=== PATIENT | female | born 1960 | race Caucasian/White ===

== ENCOUNTER 2016-09-13 12:28 | Inpatient (IN) | payer OTHER, MEDICARE ==
[2016-09-13] VITALS (9 sets, daily range): BP systolic 93–145; BP diastolic 46–88; PULSE 81–98; RESP 18–20; O2SAT 86–98
[~2016-09-13] VITALS: Ht 162.6 cm; Wt 100.5 kg
[~2016-09-13 12:28] MED LIST: ALBU2.5V4 INHALATION; ALBU8.5H2 INHALATION; ASCO500C6 PO; BACL10TA PO; BUME1TAB4 PO; CALC0.257 PO; CYA1000I IM; DIAZ10TA3 PO; GABA-500 PO; GABA-502 PO; LAMO200T PO; LEVO75TA4 PO; MAGN420T PO; METF500T4 PO; METO50TA3 PO; MIRT30TA6 PO; OMEP20CA11 PO; POTA10TA19 PO; PRAV20TA2 PO; PROP10DR4 BOTH_EYES; SPIR50TA2 PO; SYMINH INHALATION; TRAZ-118 PO
[2016-09-13 13:48] LABS: BASOPHILS % (AUTO) 0.2 % (0-3); MONOCYTES % (AUTO) 9.5 % (4-12); Mean Corpuscular Hemoglobin 28.8 pg (27.0-35.0); NEUTROPHILS % (AUTO) 73.3 % (40-74); Platelet Count 175 bil/L (150-400)
--- NOTE | 2016-09-13 13:52 | ED.REPORT ---
HPI-Dyspnea / Wheezing Date of Service Sep 13, 2016 ED Provider: Curly Ahumada MD Patient is a 56-year-old female with a hx of DM, multiple pneumonias, stage 3 renal failure, and asthma who presents to the ED reporting a cough and fever onset 3 days ago. Symptoms progressed to a productive cough 2 days ago with red and green phlegm. Pt c/o associated sore throat and congestion. Patient is having a hard time taking a breath. She has been using her nebulizer and inhaler which has not been effective in relieving symptoms. Pt recently started smoking again 2 months ago at 3 packs a day. Nursing Notes Stated Complaint: FEVER,COUGH Chief Complaint: FLU/Cold Symptoms Nursing Notes Reviewed: Yes Allergies: Coded Allergies: Penicillins (Verified Allergy, Severe, rash/seizures/vomiting, 09/13/16) ciprofloxacin HCl (Verified Allergy, Severe, Hive from head to toe, fever , and painful skin, 09/13/16) methylphenidate HCl (Verified Allergy, Severe, itching/rash/vomitting, ) phenytoin sodium extended (Verified Allergy, Severe, rash/hives, 09/13/16) sumatriptan (Verified Allergy, Severe, causing migraines, 09/13/16) cephalexin (Verified Allergy, Intermediate, Nausea,Vomiting, 09/13/16) Sulfa (Sulfonamide Antibiotics) (Verified Allergy, Unknown, rash,seizure, 09/13/16) metoclopramide HCl (Verified Adverse Reaction, Unknown, pt says it doesn' t work, 09/13/16) Scheduled Ascorbic Acid (Vitamin C) 500 Mg Capsule.er 500 MG PO DAILY Budesonide/Formoterol 160-4.5 mcg Inh (Symbicort 160-4.5 mcg Inh) 120 Puff Inhaler 2 PUFF INHALATION BID Bumetanide (Bumetanide) 1 Mg Tablet 1 MG PO BID Calcitriol (Rocaltrol) 0.25 Mcg Capsule 0.5 MCG PO DAILY Cyanocobalamin (Cyanocobalamin Injection) 1,000 Mcg/1 Ml Vial 1 ML IM monthly administer on the 1st of the month Gabapentin (Gabapentin) 300 Mg Capsule 300 MG PO HS Gabapentin (Gabapentin) 100 Mg Capsule 100 MG PO QAM Lamotrigine (Lamictal) 200 Mg Tablet 200 MG PO BID Levothyroxine (Levothyroxine) 75 Mcg Tablet 75 MCG PO DAILY Magnesium Oxide (Magnesium Oxide) 420 Mg Tablet 420 MG PO DAILY Metformin (Metformin) 500 Mg Tablet 1,500 MG PO DAILY Metoprolol Tartrate (Metoprolol Tartrate) 50 Mg Tablet 50 MG PO BID Mirtazapine (Mirtazapine) 30 Mg Tablet 30 MG PO HS Omeprazole (Omeprazole) 20 Mg Capsule.dr 20 MG PO DAILY Potassium Citrate ER (Potassium Citrate ER) 10 Meq Tablet 20 MEQ PO DAILY TAKE WITH FOOD Pravastatin (Pravastatin) 20 Mg Tablet 20 MG PO DAILY Spironolactone (Spironolactone) 50 Mg Tablet 50 MG PO DAILY Trazodone (Trazodone) 100 Mg Tablet 100 MG PO HS Scheduled PRN Albuterol HFA (Proair HFA) 8.5 Gm Hfa.aer.ad 2 PUFFS INHALATION Q4H PRN PRN For Shortness of Breath Albuterol Neb Soln (Albuterol Neb Soln) 2.5 Mg/3 Ml Vial.neb 3 ML INHALATION QID PRN PRN For Shortness of Breath Baclofen (Baclofen) 10 Mg Tablet 10 MG PO TID PRN PRN For Spasm Diazepam (Diazepam) 10 Mg Tablet 10 MG PO BID PRN PRN For Spasm Propylene Glycol (Systane Balance) 10 Ml Drops 1 DROP BOTH_EYES 5XD PRN PRN For Eye Irritation General Time Seen by MD: 12:57 Chief Complaint Cough Hx Obtained From: Patient Arrived By: Walk-in Sudden in Onset?: Yes Onset Occurred: 3 days ago Symptom Duration: Since onset Severity: Current: No pain currently Recent Healthcare: Recent doctor visit, Recent hospitalization Similar Sx Previous: Yes Past Medical History Past Medical History Notes: PCP: Dr. Lambert Past Medical History Anxiety Hypoparathyroid Migraines Fatty liver disease Nephrocalcinosis Diverticulosis DM Hiatal hernia Chronic pain PTSD DDD Hyperlipidemia IBS Gastroparesis Ovarian cysts - removed glaucoma cataracts Extra rib ADHD Obstructive Sleep Apnea Hypopituitarism Asthma Cancer COPD GERD Hypertension Chronic lymphedema Past Surgical History LEEP, hemorrhoid surgery Spinal stenosis Shoulder surgery Meniscus repair Lumpectomy Reports: Hysterectomy Reports: Back/neck surgery, Tubal ligation Family History Hyperlipidemia Reports: Diabetes mellitus Reports: Cancer Smoking History Former Smoker Social History Patient quit smoking 10 years ago but recently began again Alcohol Use: Denies alcohol use Drug Use: Denies drug use, THC Other Social History: Local resident Ambulatory Status Walker Review of Systems Constitutional: Reports: Fever Ears / Nose / Throat: Reports: Nasal congestion, Sore throat Respiratory: Reports: Prod cough, bloody, Prod cough, green, Wheezing Complete sys rev & neg: except as marked. Physical Exam Initial Vital Signs Vital Signs (First) Date Time Temp Pulse Resp B/P Pulse Ox O2 Delivery O2 Flow Rate FiO2 09/13/16 12:45 38.4 95 20 104/70 89 Room Air Initial VS: Reviewed Head / Eyes: Atraumatic, Normocephalic, PERRL ENT: Mucous membranes moist, Conjunctiva normal, No scleral icterus Abdomen / GI: Soft, Non-tender, No guarding, No rebound, No distention Back: No CVA tenderness Skin: Warm, Dry, No cyanosis Neurologic: Alert, Oriented, Nonfocal Psychiatric: Mood/affect normal, Behavior normal, Normal thought content General/Constitutional: Awake, Alert, Cooperative Neck: Atraumatic, Supple, No meningismus, Full range of motion, No swelling, Non-tender Respiratory / Chest: Breath sounds = bilat (course breath sounds bilaterally) Wheezing / Retractions: Positive: Wheezing moderate Cardiovascular: Heart rate NL, Regular rhythm, Heart sounds NL, No gallop, No murmurs, No rubs Lower Extremity / Pelvis / MS: No edema Interpretation & Diagnostics Lab Results Interpretation Result Diagram: 09/13/16 1330 09/13/16 1330 Test 09/13/16 13:30 White Blood Count 8.3th/mm3 (3.8-10.1) Red Blood Count 4.13mil/mm3 (3.90-5.20) Hemoglobin 11.9g/dL (12.0-15.6) Hematocrit 38.4% (35.0-46.0) Mean Corpuscular Volume 93.0fL (81-100) Mean Corpuscular Hemoglobin 28.8pg (27.0-35.0) Mean Corpuscular Hemoglobin Concent 31.0% (32.0-37.0) Red Cell Distribution Width 15.0% (12.3-15.4) Platelet Count 175bil/L (150-400) Neutrophils (%) (Auto) 73.3% (40-74) Lymphocytes (%) (Auto) 15.4% (14-46) Monocytes (%) (Auto) 9.5% (4-12) Eosinophils (%) (Auto) 1.0% (0-5) Basophils (%) (Auto) 0.2% (0-3) Sodium Level 138mEq/L (134-144) Potassium Level 3.7mEq/L (3.5-5.2) Chloride Level 98mEq/L (97-108) Carbon Dioxide Level 25mmol/L (18-29) Blood Urea Nitrogen 11mg/dL (6-24) Creatinine 1.12mg/dL (0.57-1.00) Estimat Glomerular Filtration Rate 72mL/min (>59) Glucose Level 170mg/dL (60-99) Lactic Acid Level 1.6mmol/L (0.4-2.0) Calcium Level 8.4mg/dL (8.5-10.1) Magnesium Level 1.8mg/dL (1.6-2.6) Total Bilirubin 0.2mg/dL (0.0-1.2) Aspartate Amino Transf (AST/SGOT) 25U/L (0-50) Alanine Aminotransferase (ALT/SGPT) 13U/L (0-32) Alkaline Phosphatase 80U/L (25-150) Troponin T < 0.010ug/L (0.0-0.011) Total Protein 6.6g/dL (6.4-8.4) Albumin 3.7g/dL (3.4-5.0) Lab Results Interpretation: negative for influenza A & B ECG Interpretation Time: 13:02 Interpreted by: ED physician Normal ECG Interpretation: Normal sinus rhythm (90), No acute ischemic changes Re-Eval/Medical Decision Med Decision/Clinical Course 56-year-old female history of smoking, diabetes, asthma, recurrent pneumonias is having shortness of breath. Patient was recently admitted several weeks ago for hypokalemia. Oxygen 89% on room air on arrival. Chest x-ray bibasilar pneumonia. Lactate normal. White blood cell count normal. Patient with numerous allergies. Discussed with hospitalist Dr. more decision made to start patient on vancomycin and cefepime (keflex allergy rash per patient). She has Levaquin allergy. Influenza negative. Patient requiring 2 L oxygen at time of transfer. Re-Evaluation/Progress : Time of Eval: 14:41 Patient Status: Condition unchanged Re-Evaluation/Progress Note: Pt rechecked. Informed pt of diagnosis of pneumonia and need for admission. Pt understands and agrees with plan for admission. All questions addressed. Counseled Regarding: Diagnosis, Lab results, Need for admission Discharge & Departure Impression: Primary Impression: Healthcare-associated pneumonia Disposition: ADMITTED TO HOSPITAL Discharge Condition All VS Reviewed: Yes Condition: Stable Referrals: Mauricio Varma MD (PCP) Scribe Attestation Portion of this note were transcribed by Kika Thakkar. I, Dr. Ahumada, personally performed the history, physical exam, and medical decision-making: I reviewed and confirmed the accuracy for the information in the transcribed note. Signed by: staci Boston, 09/13/16 1500 copies to: Mauricio Varma MD, Ben M MD Sep 13, 2016 13:52 KIKA THAKKAR Sep 13, 2016 14:05
--- NOTE | 2016-09-13 13:56 | DRSVH ---
PROCEDURE: X-RAY CHEST ONE VIEW, PORTABLE ([id number]) INDICATIONS: shortness of breath , fever , cough TECHNIQUE: One view of the chest was acquired. COMPARISON: [facility], CR, XR CHEST 1VW (PORTABLE), 08/15/2016, 16:16. FINDINGS: Surgical changes and devices: None. Lungs and pleura: No pleural effusions or pneumothorax. Bibasilar airspace opacities present, right greater than left. Mediastinum: Mediastinal contours appear normal. Heart size is normal. Bones and chest wall: No suspicious bony lesions. Overlying soft tissues appear unremarkable. IMPRESSION: Bibasilar atelectasis versus aspiration or pneumonia. Correlate clinically. Dictated by: Remy Doe RRA Interpreted: Eugenia Madrid MD on 09/13/2016 at 13:55 Transcribed by: QAMAR on 09/13/2016 at 13:56 Approved by: Eugenia Madrid MD, PhD on 09/13/2016 at 17:26
[2016-09-13] MEDS ORDERED: Albuterol-Ipratropium 3 mL Inhalation Solution NEB ONE (14:05)
[2016-09-13] MEDS ORDERED: MethylprednisoLONE Sodium Succinate 62.5 mg/mL 2 mL Inj IVPUSH ONE (14:05)
[2016-09-13 14:32] LABS: Magnesium 1.8 mg/dL (1.6-2.6); TROPONIN T < 0.010 ug/L (0.0-0.011)
[2016-09-13] MEDS ORDERED: Vancomycin Dose per Pharmacist XX ONE (15:00)
[2016-09-13] MEDS ORDERED: Cefepime Inj 2 GM in IV Premix 1 EACH IV ONE (15:20)
[2016-09-13] MEDS ORDERED: Albuterol-Ipratropium 3 mL Inhalation Solution NEB PRN (15:25)
[2016-09-13] MEDS ORDERED: 0.9% Sodium Chloride 1,000 ML IV SCH (15:55)
[2016-09-13] MEDS ORDERED: Vancomycin Inj 1,750 MG in Dextrose 5% 500 ML IV ONE (16:00)
[2016-09-13] MEDS: Albuterol-Ipratropium 3 mL Inhalation Solution NEB SCH ×2 (16:10→19:56)
[2016-09-13] MEDS: Cefepime Inj 2,000 MG in Dextrose 5% Minibag Plus 50 ML IV SCH ×2 (16:11→16:13)
--- NOTE | 2016-09-13 16:21 | PCM.HPMED ---
Subjective Date of Service Sep 13, 2016 Primary Provider: Admitting Physician: Primary Care Physician: Mauricio Varma MD Attending Physician: Chief Complaint: Generalized weakness productive cough History of Present Illness: 56-year-old female with active smoker, asthma COPD on Symbicort, albuterol prn, multiple other commodities presented with generalized weakness, worsening productive cough, vomiting started 3-4 days ago. Patient was in usual state of health until 4 days ago, thinks that she was exposed to one of the grandsons possibly who were coughing, started feeling unwell, coughing, decreased appetite, cough has gradually gotten worse starting to become productive. Patient has been using albuterol frequently to the point that patient used all months every hours all day yesterday, however symptoms were worse, also had one episode of vomiting after she took [id number] cough syrup. Also noted to have severe difficulty breathing even with frequent , decided to come to the hospital. Patient waited until today because her hospital and did not want her to be in the hospital because all multiple hospitalizations in the past. During this course, patient was only able to use inhalers but not able to take oral pills. Of note, pt quit smoking for 10yrs but started smoking 3ppd for 2month due to stress, depression, stopped smoking since she got sick. Patient also endorsed fever and chills, no nausea vomiting constipation diarrhea , abdominal pain, recent travel, chest pain, palpitation. In emergency room, vital signs initial systolic 100s, tachycardic to 90 findings , tachypneic to 20s,hypoxic to 90% on room air, fever 38.4. Patient received neb treatment, vancomycin and cefepime given multiple drug allergies, solu- medrol. During the interview in the emergency room, patient fell asleep during conversation, noted to have blood pressure low to 90/40, intermittently coughing. Although mentating well, oriented, I asked ED provider to start bolus 2 L Review of Systems: Pertinent positives as noted in history of present illness. All other systems were reviewed and are negative Allergies Coded Allergies: Penicillins (Verified Allergy, Severe, rash/seizures/vomiting, 09/13/16) ciprofloxacin HCl (Verified Allergy, Severe, Hive from head to toe, fever , and painful skin, 09/13/16) methylphenidate HCl (Verified Allergy, Severe, itching/rash/vomitting, ) phenytoin sodium extended (Verified Allergy, Severe, rash/hives, 09/13/16) sumatriptan (Verified Allergy, Severe, causing migraines, 09/13/16) cephalexin (Verified Allergy, Intermediate, Nausea,Vomiting, 09/13/16) Sulfa (Sulfonamide Antibiotics) (Verified Allergy, Unknown, rash,seizure, 09/13/16) metoclopramide HCl (Verified Adverse Reaction, Unknown, pt says it doesn' t work, 09/13/16) Home Medications Discharge Medications Ascorbic Acid (Vitamin C) 500 Mg Capsule.er 500 MG PO DAILY (Reported) Budesonide/Formoterol 160-4.5 mcg Inh (Symbicort 160-4.5 mcg Inh) 120 Puff Inhaler 2 PUFF INHALATION BID (Reported) Bumetanide (Bumetanide) 1 Mg Tablet 1 MG PO BID (Reported) Calcitriol (Rocaltrol) 0.25 Mcg Capsule 0.5 MCG PO DAILY (Reported) Cyanocobalamin (Cyanocobalamin Injection) 1,000 Mcg/1 Ml Vial 1 ML IM monthly ( Reported) administer on the 1st of the month Gabapentin (Gabapentin) 300 Mg Capsule 300 MG PO HS (Reported) Gabapentin (Gabapentin) 100 Mg Capsule 100 MG PO QAM (Reported) Lamotrigine (Lamictal) 200 Mg Tablet 200 MG PO BID (Reported) Levothyroxine (Levothyroxine) 75 Mcg Tablet 75 MCG PO DAILY (Reported) Magnesium Oxide (Magnesium Oxide) 420 Mg Tablet 420 MG PO DAILY (Reported) Metformin (Metformin) 500 Mg Tablet 1,500 MG PO DAILY (Reported) Metoprolol Tartrate (Metoprolol Tartrate) 50 Mg Tablet 50 MG PO BID (Reported) Mirtazapine (Mirtazapine) 30 Mg Tablet 30 MG PO HS (Reported) Omeprazole (Omeprazole) 20 Mg Capsule.dr 20 MG PO DAILY (Reported) Potassium Citrate ER (Potassium Citrate ER) 10 Meq Tablet 20 MEQ PO DAILY TAKE WITH FOOD Prescribed by: CINDY STROUD MD Pravastatin (Pravastatin) 20 Mg Tablet 20 MG PO DAILY (Reported) Spironolactone (Spironolactone) 50 Mg Tablet 50 MG PO DAILY (Reported) Trazodone (Trazodone) 100 Mg Tablet 100 MG PO HS (Reported) As needed Albuterol HFA (Proair HFA) 8.5 Gm Hfa.aer.ad 2 PUFFS INHALATION Q4H PRN PRN For Shortness of Breath (Reported) Albuterol Neb Soln (Albuterol Neb Soln) 2.5 Mg/3 Ml Vial.neb 3 ML INHALATION QID PRN PRN For Shortness of Breath (Reported) Baclofen (Baclofen) 10 Mg Tablet 10 MG PO TID PRN PRN For Spasm (Reported) Diazepam (Diazepam) 10 Mg Tablet 10 MG PO BID PRN PRN For Spasm (Reported) Propylene Glycol (Systane Balance) 10 Ml Drops 1 DROP BOTH_EYES 5XD PRN PRN For Eye Irritation (Reported) PMH PMH 1. History of hypoparathyroidism. 2. History of migraines. 3. History of depression, anxiety. 4. History of chronic pain. 5. History of PTSD. 6. History of irritable bowel syndrome. 7. History of ADHD. 8. History of obstructive sleep apnea. 9. History of COPD. 10. History of GERD. 11. History of hypertension. 12. History of asthma. 13. Status post LEEP and hemorrhoid surgery. 14. History of spinal stenosis with repair of her lumbar area about a year ago, and four months ago repair of spinal stenosis of her neck. Family History Significant for type 2 diabetes and hyperlipidemia Social History Hx Alcohol Use: No Hx Substance Use: Yes (marjiuana via vape once a week) Hx Tobacco Use: Yes Smoking Status: Former Smoker Living Arrangement: with Family Social History Hx Alcohol Use: No Hx Substance Use: Yes (marjiuana via vape once a week) Hx Tobacco Use: Yes Smoking Status: Former Smoker Additional Information Patient lives with and grandchildren children Exam Vital Signs Vital Sign - Last Date Time Temp Pulse Resp B/P Pulse Ox O2 Delivery O2 Flow Rate FiO2 09/13/16 14:26 91 20 97 Room Air 09/13/16 12:45 38.4 104/70 Exam Drowsy middle-aged lady obese, easily fall asleep drink conversation Speaks in full sentences, no accessory muscle use no JVD, dry MM, no LAD RRR, nl s1, s2 no mrg Diffuse crackles R>L, no wheezing. S,ND,NT,normoactive BS+ warm, nonpitting edema bilaterally, pulses 2/2 Lab and Diagnostics Result Diagram: 09/13/16 1330 09/13/16 1330 X-Rays, CTs and MRIs PROCEDURE: X-RAY CHEST ONE VIEW, PORTABLE ([id number]) INDICATIONS: shortness of breath , fever , cough TECHNIQUE: One view of the chest was acquired. COMPARISON: [facility], CR, XR CHEST 1VW (PORTABLE), 08/15/2016, 16 :16. FINDINGS: Surgical changes and devices: None. Lungs and pleura: No pleural effusions or pneumothorax. Bibasilar airspace opacities present, right greater than left. Mediastinum: Mediastinal contours appear normal. Heart size is normal. Bones and chest wall: No suspicious bony lesions. Overlying soft tissues appear unremarkable. IMPRESSION: Bibasilar atelectasis versus aspiration or pneumonia. Correlate clinically. Dictated by: Remy Doe RRA Interpreted: Eugenia Madrid MD on 09/13/2016 at 13:55 Transcribed by: QAMAR on 09/13/2016 at 13:56 Assessment & Plan 56-year-old female with asthma COPD on Symbicort, albuterol prn, multiple other comorbidities presented with generalized weakness, worsening productive cough, vomiting started 3-4 days ago. acute, active #Acute respiratory failure secondary to community-acquired pneumonia , POA, met SIRS+ fever/HR/RR/wbc, likely severe sepsis given hypotension, possible source: influenza vs bacterial process. CXR showed increased RML infiltrates flu swab neg. -s/p vanc, cefepime in ED, will continue for now, if pt develop severe allergic reaction, consider switch to linezolid -empirically start Tamiflu, if res PCR neg then stop. -given possible flu, no high suspicion of bronchospasm, will hold steroid use for now. -trends procalcitonin, fever curve, -infectious w/u MRSA swab, strep Ag, legionella Ag, resp PCR, BCX, will get UA as well, sputum CX -keep telemetry, bolus 2lites then followed by 150cc/hr -O2 supplement as needed, target>95%, #YVES on CKD2, POA, likely prerenal from dehydration,will trend with IVF, avoid renal toxin, adjust med renally chronic, stable # hx of recent hospitalization with hypoklemia/contraction alkalosis due to diuretics, hold diuretics/other renal toxin for now #. Hypoparathyroidism, continue Calcitrol #. Hypothyroidism, continue Synthroid at current dose #. Seizure disorder, high of seizure given med not given recently, sepsis, will continue Lamictal #. Bilateral leg swelling ?lymphedema, unchanged per pt # DM, hold metformin, will do RISS while NPO dispo:Patient will be admitted with inpatient status with expectation of inpatient therapy for more than 2 midnights diet:NPO, will try liquid if is more stable dvt ppx: HSQ q12h Full code Time spent 65 minutes Wali Queen MD Sep 13, 2016 15:44
[2016-09-13] MEDS ORDERED: levETIRAcetam Inj 1,000 MG in IV Premix 1 EACH IV ONE (17:00)
[2016-09-13] MEDS: 0.9% Sodium Chloride 1,000 ML IV SCH (17:35)
--- NOTE | 2016-09-13 18:36 | NUR ---
Admission Admit to room 3023 from ER via rney. IVF infusing, 2L O2 NC. Tele applied, vancomycin started. Reports delicate IV, secured with pediatric board under wrist. Nasal swabs and urine obtained and sent to lab. Droplet precautions in place. Pt oriented to room and call light. Admission assessments completed, minus physical assessment and med-rec due to time of transfer. Night RN notified. Educated on sepsis and care notes provided. Pt making needs known appropriately via call light.
[2016-09-13 19:06] LABS: COLOR,URINE YELLOW (YELLOW)
[2016-09-13 19:07] LABS: APPEARANCE,URINE CLEAR (CLEAR,HAZY); OCCULT BLOOD,URINE TRACE (NEGATIVE); PH,URINE 6.5 (5.0-8.0); UROBILINOGEN,URINE NORMAL (NORMAL)
--- NOTE | 2016-09-13 20:00 | NUR ---
med rec complete, request to [facility] made faxed request to [facility] for [facility] list. current med rec reviewed with . Addendum: 09/13/16 at 2001 by DANTE HERNANDEZ RN reports there has been "many recent medication changes, its hard to keep them all straight." Addendum: 09/13/16 at 2028 by DANTE HERNANDEZ RN fax requests made to occupational therapist's assistant , and dr Petra joya, daniel luis (jaye garcia helped with this.)
[2016-09-13] MEDS: Heparin 5,000 Unit/mL Inj SUBQ SCH (22:11)
[2016-09-13] MEDS: lamoTRIgine 100 mg Tablet PO SCH (22:12)
[2016-09-14] VITALS (15 sets, daily range): BP systolic 96–131; BP diastolic 57–79; PULSE 67–100; RESP 18–24; O2SAT 92–98
[2016-09-14] MEDS: 0.9% Sodium Chloride 1,000 ML IV SCH ×2 (00:45→05:45)
[2016-09-14] MEDS: Albuterol-Ipratropium 3 mL Inhalation Solution NEB SCH ×6 (00:48→20:32)
[2016-09-14 08:02] LABS: BASOPHILS % (AUTO) 0.2 % (0-3); EOSINOPHILS % (AUTO) 0 % (0-5); MONOCYTES % (AUTO) 6.5 % (4-12); Mean Corpuscular Hemoglobin 28.7 pg (27.0-35.0); NEUTROPHILS % (AUTO) 79.2 % (40-74); Platelet Count 156 bil/L (150-400)
[2016-09-14] MEDS: Pantoprazole 40 mg ER24 Tablet PO SCH (08:21)
[2016-09-14] MEDS: lamoTRIgine 100 mg Tablet PO SCH ×2 (08:21→20:13)
[2016-09-14] MEDS: Heparin 5,000 Unit/mL Inj SUBQ SCH ×2 (08:23→20:13)
[2016-09-14] MEDS: Cefepime Inj 1,000 MG in Dextrose 5% Minibag Plus 50 ML IV SCH ×3 (09:25→23:45)
[2016-09-14] MEDS: predniSONE 20 mg Tablet PO SCH (10:11)
--- NOTE | 2016-09-14 10:13 | NUR ---
calcium level pt is concerned that her calcium level is low. this RN will page the doc for any orders.
--- NOTE | 2016-09-14 11:02 | NUR ---
Social Work: Attempted initial Assessment Data: Pt is a 56 y/o female admitted for pneumonia. Pt's PCP is Dr Varma. Pt's Insurance is [employer] out of state with Medicare secondary. EMR reviewed, pt discussed in rounds. MD states pt likely to d/c in 1-2 days. Per H&P pt lives in [place] with family. WAREHOUSE GENERAL LABORER attempted initial assessment, pt sleeping soundly. WAREHOUSE GENERAL LABORER will attempt at a later time. Assessment: Pt who is independent at baseline. Plan: WAREHOUSE GENERAL LABORER will attempt initial assessment at a later time. PUSHPA Lopez
--- NOTE | 2016-09-14 12:29 | NUR ---
trouble breathing pt is having a coughing fit and states that she is having trouble breathing. RT is in the room and started a breathing treatment. pt requests that she have an emergency inhaler in the room.
[2016-09-14] MEDS ORDERED: Albuterol HFA 60 Puff 8 Gm Inhaler INHALATION PRN (12:40)
--- NOTE | 2016-09-14 12:43 | PCM.PNMED ---
Subjective Date of Service Sep 14, 2016 Subjective Patient is more alert, still coughing badly, coughing up phlegm In general patient feels better today Exam Vital Signs Vital Sign - Last Date Time Temp Pulse Resp B/P Pulse Ox O2 Delivery O2 Flow Rate FiO2 09/14/16 12:33 92 24 92 Nasal Cannula 3.00 09/14/16 09:15 36.8 105/65 Intake and Output 09/13/16 09/13/16 09/14/16 Cumulative From/Thru 15:00 23:00 07:00 09/13/16 12:45 - 09/14/16 06:37 Intake Total 1000 ml 2552 ml 3552 ml Output Total 300 ml 1300 ml 1600 ml Balance 700 ml 1252 ml 1952 ml Intake Oral 0 ml 640 ml 640 ml IV Total 1000 ml 1912 ml 2912 ml Output Urine Total 300 ml 1300 ml 1600 ml Exam Laying down on the bed, comfortable Speaks in full sentences, no accessory muscle use no JVD, dry MM, no LAD RRR, nl s1, s2 no mrg Diffuse expiratory wheezing, no crackles S,ND,NT,normoactive BS+ warm, nonpitting edema bilaterally, pulses 2/2 IVs and Medications Medications Reviewed: Medications were reviewed in detail Lab and Diagnostics Result Diagram: 09/14/16 0750 09/14/16 0750 X-Rays, CTs and MRIs PROCEDURE: X-RAY CHEST ONE VIEW, PORTABLE ([id number]) INDICATIONS: shortness of breath , fever , cough TECHNIQUE: One view of the chest was acquired. COMPARISON: [facility], CR, XR CHEST 1VW (PORTABLE), 08/15/2016, 16 :16. FINDINGS: Surgical changes and devices: None. Lungs and pleura: No pleural effusions or pneumothorax. Bibasilar airspace opacities present, right greater than left. Mediastinum: Mediastinal contours appear normal. Heart size is normal. Bones and chest wall: No suspicious bony lesions. Overlying soft tissues appear unremarkable. IMPRESSION: Bibasilar atelectasis versus aspiration or pneumonia. Correlate clinically. Dictated by: Remy MARTE Interpreted: Eugenia Madrid MD on 09/13/2016 at 13:55 Transcribed by: QAMAR on 09/13/2016 at 13:56 Assessment & Plan 56-year-old female with asthma COPD on Symbicort, albuterol prn, multiple other comorbidities presented with generalized weakness, worsening productive cough, vomiting started 3-4 days ago. acute, active #Acute respiratory failure secondary to community-acquired pneumonia , POA, met SIRS+ fever/HR/RR/wbc, likely severe sepsis given hypotension, possible source: influenza vs bacterial process. CXR showed increased RML infiltrates flu swab neg. -s/p vanc, cefepime in ED, will continue for now, if pt develop severe allergic reaction, consider switch to linezolid -s/p empirically start Tamiflu, stopped with Res PCR neg today -s/p solu-medrol, will continue prednisone given wheezing on exam, -trends procalcitonin, fever curve, -infectious w/u so far negative-MRSA swab, strep Ag, legionella Ag, resp PCR, BCX, sputum CX -keep telemetry, s/p bolus 2lites then followed by 150cc/hr, continue for now -O2 supplement as needed, target>95%, -added albuterol MDI, Robitussin DM 5ml q4h today #?HTN, hypotensive to low 100s, 90s, Held BB given hemodynamics chronic, stable #YVES on CKD2, POA, likely prerenal from dehydration,resolved with hydration, avoid renal toxin, adjust med renally # hx of recent hospitalization with hypoklemia/contraction alkalosis due to diuretics, hold diuretics/other renal toxin for now #. Hypoparathyroidism, continue Calcitrol #. Hypothyroidism, continue Synthroid at current dose #. Seizure disorder, high of seizure given med not given recently, sepsis, will continue Lamictal #. Bilateral leg swelling ?lymphedema, unchanged per pt # DM, hold metformin,continue lisproSS dispo: Likely to 2-3 more days, diet:cardiac, diabetic dvt ppx: HSQ q12h Full code VTE Mechanical Devices: Intermittant Pneumatic CD Time spent 35 minutes Wali Queen MD Sep 14, 2016 12:43
[2016-09-14] MEDS ORDERED: Glucose 40% Oral Gel 15 Gm Tube PO PRN (12:45)
--- NOTE | 2016-09-14 14:18 | NUR ---
spiritual care: routine caring visit. pt known to wildlife technician from previous admissions. pt very sleepy, agreeable for caring stock supervisor visitor to stop in later.
[2016-09-14] MEDS: guaiFENesin DM 100-10 mg/5 mL 118 mL Syrup PO PRN ×2 (15:00→18:31)
--- NOTE | 2016-09-14 16:01 | NUR ---
Social Work Note Initial Assessment: D/A: See Initial Assessment. The Pt is a 56 y/o female that was admitted for pneumonia on 09/13/2016 as per EMR. The Pt's PCP is MD Jhony Sotelo and her insurance is [employer], no LTC or VA benefits. Readmission score is 4. EMR reviewed, SW met with the Pt at bedside to discuss role and discharge planning. The Pt lives in two story home with her and family. Her is her DPOA, paperwork requested. She is independent at her baseline, continues to drive, and uses a cane. She has no HH but has had an one month stay at [facility] in 2013. No needs identified. The Pt requested resources regarding home care, SRG given. P: The Pt to be discharged when medically stable with family to provide POV transportation. No needs identified. Resources requested, SRG given. SW to follow if additional needs arise. PUSHPA Sanchez MSW Addendum: 09/14/16 at 1602 by DIXIE CARCAMO Amended: Links added.
[2016-09-14] MEDS: Insulin LISPRO 300 Unit/3 mL Inj SUBQ SCH ×2 (17:00→20:40)
[2016-09-14] MEDS ORDERED: CALCIUM GLUBIONATE PO ONE (19:10)
[2016-09-14] MEDS ORDERED: Calcium GLUCO 10% (Gm) 1 Gm/10 mL 50 mL Inj IV ONE (20:00)
[2016-09-14] MEDS ORDERED: Calcium GLUCOnate 10% 1 Gm/50 mL NS IV ONE ×2 (20:10)
[2016-09-14] MEDS: guaiFENesin DM 200-20 mg/10 mL Syrup PO PRN (23:44)
[2016-09-15] VITALS (14 sets, daily range): BP systolic 114–144; BP diastolic 64–79; PULSE 80–98; RESP 20; O2SAT 93–99
[2016-09-15] MEDS: Albuterol-Ipratropium 3 mL Inhalation Solution NEB SCH ×6 (00:29→20:30)
--- NOTE | 2016-09-15 03:20 | NUR ---
Behavior Patient upset that calcium was ordered as oral solution and not a solution for her IV. Patient states "I could just ring that doctors neck, what are they thinking". Patient states " I could just scream!" patient crying, yelling, cursing. reinforced to patient that I have oral calcium but if she would like IV calcium I can call the doctor to get it changed. Paged MD. new order for calcium IV ordered. Patient reports that low calcium can make her have nervous breakdowns and become extremely irritable. Patient mood appears better after calcium infusion. Patient reports she takes 0.25mcg of Calcitrol four times a day spread throughout the day. current order is for 0.5mcg or 2 tabs once a day. Left note for MD in patient chart. Will continue to monitor
--- NOTE | 2016-09-15 03:21 | NUR ---
Valium Patient requesting Valium for leg pain. Patient reports that she over dosed on Valium approximately 2 weeks ago. Patient request that I page MD requesting Valium anyway because it is the only thing that will work. MD paged per patient request. No response. Patient informed that because of her history and breathing issues at the time it may not be a good Idea. Patient appears calm reading a book in bed. no s/s of distress at this time will continue to monitor.
[2016-09-15] MEDS: Pantoprazole 40 mg ER24 Tablet PO SCH (05:07)
[2016-09-15] MEDS: Cefepime Inj 1,000 MG in Dextrose 5% Minibag Plus 50 ML IV SCH ×2 (08:01→16:51)
[2016-09-15] MEDS: predniSONE 20 mg Tablet PO SCH (08:02)
[2016-09-15] MEDS: lamoTRIgine 100 mg Tablet PO SCH ×2 (08:02→19:44)
[2016-09-15] MEDS: Insulin LISPRO 300 Unit/3 mL Inj SUBQ SCH ×4 (08:03→20:40)
[2016-09-15] MEDS: Heparin 5,000 Unit/mL Inj SUBQ SCH ×2 (08:37→19:46)
[2016-09-15] MEDS: guaiFENesin DM 200-20 mg/10 mL Syrup PO PRN ×2 (10:04→21:34)
--- NOTE | 2016-09-15 13:01 | NUR ---
room air trial of pt being on room air, pulse ox 93-94% this RN will monitor and recheck SATS Addendum: 09/15/16 at 1357 by TED PEPE RN 1400 pt still on room air, pulse ox 92-93%
[2016-09-15] MEDS: 0.9% Sodium Chloride 1,000 ML IV SCH (16:28)
--- NOTE | 2016-09-15 16:40 | PCM.PNMED ---
Subjective Date of Service Sep 15, 2016 Subjective Patient was seen and examined today. Patient was very anxious and tearful secondary to the news that her has been unfaithful. The patient denies any chest pain, reports mild shortness of breath and generalized malaise. Exam Vital Signs Vital Sign - Last Date Time Temp Pulse Resp B/P Pulse Ox O2 Delivery O2 Flow Rate FiO2 09/15/16 16:00 90 20 94 Room Air 09/15/16 14:31 36.8 126/76 3.00 Intake and Output 09/14/16 09/14/16 09/15/16 Cumulative From/Thru 15:00 23:00 07:00 09/13/16 12:45 - 09/15/16 06:36 Intake Total 396 ml 923 ml 400 ml 5271 ml Output Total 1450 ml 700 ml 3750 ml Balance 396 ml -527 ml -300 ml 1521 ml Intake Oral 880 ml 400 ml 1920 ml IV Total 396 ml 43 ml 3351 ml Output Urine Total 1450 ml 700 ml 3750 ml # Voids 4 4 Exam Physical Exam: GEN: Patient was awake, alert, responding appropriately to questions HEENT: PERRLA, EOMI, Neck soft supple, trachea midline, nomocephalic/atraumatic CV: +S1/S2, RRR, no murmurs auscultated Respiratory: CTAB, + wheezes, no rales, rhonchi GI: +bowel sounds x4, soft, compressible, non TTP EXT: no c/c/e Neuro: CN II-XII grossly intact Psych: mood and affect were depressed and agitated IVs and Medications Medications Reviewed: Medications were reviewed in detail Medications Current Medications Heparin Sodium (Porcine) 5,000 unit Q12 SUBQ Last administered on 09/15/16 08: 37; Admin Dose 5,000 UNIT; Start 09/13/16 at 20:30 Lamotrigine 200 mg BID PO Last administered on 09/15/16 08:02; Admin Dose 200 MG; Start 09/13/16 at 20:30 Calcitriol 0.5 mcg DAILY PO Last administered on 09/15/16 08:02; Admin Dose 0.5 MCG; Start 09/14/16 at 08:30 Gabapentin 100 mg DAILY PO Last administered on 09/15/16 08:37; Admin Dose 100 MG; Start 09/14/16 at 08:30 Gabapentin 300 mg HS PO Last administered on 09/14/16 20:13; Admin Dose 300 MG ; Start 09/13/16 at 21:00 Levothyroxine Sodium 75 mcg 0630 PO Last administered on 09/15/16 05:07; Admin Dose 75 MCG; Start 09/14/16 at 06:30 Metoprolol Tartrate 50 mg BID PO; Start 09/14/16 at 08:30; Stop 09/14/16 at 08: 30; Status DC Pravastatin Sodium 20 mg DAILY PO Last administered on 09/15/16 08:02; Admin Dose 20 MG; Start 09/14/16 at 08:30 Pantoprazole 40 mg 40 mg 0630 PO Last administered on 09/15/16 05:07; Admin Dose 40 MG; Start 09/14/16 at 06:30 Cefepime HCl/ Dextrose/Water 50 ml @ 12.5 mls/hr Q8 IV Last administered on 08:01; Admin Dose 12.5 MLS/HR; Start 09/14/16 at 08:30 Prednisone 40 mg DAILY PO Last administered on 09/15/16 08:02; Admin Dose 40 MG ; Start 09/14/16 at 08:35 Albuterol 2 puff Q4H PRN INHALATION; Start 09/14/16 at 12:40; Stop 09/14/16 at 13:16; Status DC Guaifenesin/ Dextromethorphan 5 ml Q4H PRN PO Last administered on 09/14/16 18 :31; Admin Dose 5 ML; Start 09/14/16 at 12:40; Stop 09/14/16 at 23:40; Status DC Insulin Human Lispro Nutritional Dose to be given pr... [facility] SUBQ Last administered on 09/15/16 12:09; Admin Dose 5 UNIT; Start 09/14/16 at 17:30 Dexbrompheniramine/ Guaifenesin 5 ml Q4H PRN PO Last administered on 09/15/16 10:04; Admin Dose 5 ML; Start 09/14/16 at 23:40 Docusate Sodium 100 mg BID PRN PO Last administered on 09/15/16 13:47; Admin Dose 100 MG; Start 09/15/16 at 13:10 Lab and Diagnostics Result Diagram: 09/14/16 0750 09/14/16 0750 X-Rays, CTs and MRIs PROCEDURE: X-RAY CHEST ONE VIEW, PORTABLE ([id number]) INDICATIONS: shortness of breath , fever , cough TECHNIQUE: One view of the chest was acquired. COMPARISON: , CR, XR CHEST 1VW (PORTABLE), 08/15/2016, 16 :16. FINDINGS: Surgical changes and devices: None. Lungs and pleura: No pleural effusions or pneumothorax. Bibasilar airspace opacities present, right greater than left. Mediastinum: Mediastinal contours appear normal. Heart size is normal. Bones and chest wall: No suspicious bony lesions. Overlying soft tissues appear unremarkable. IMPRESSION: Bibasilar atelectasis versus aspiration or pneumonia. Correlate clinically. Dictated by: Remy MARTE Interpreted: Eugenia Madrid MD on 09/13/2016 at 13:55 Transcribed by: QAMAR on 09/13/2016 at 13:56 Assessment & Plan 56-year-old female with asthma COPD on Symbicort, albuterol prn, multiple other comorbidities presented with generalized weakness, worsening productive cough, vomiting started 3-4 days ago. acute, active Acute respiratory failure secondary to community-acquired pneumonia , POA, met SIRS+ fever/HR/RR/wbc, likely severe sepsis given hypotension, possible source: influenza vs bacterial process. CXR showed increased RML infiltrates flu swab neg. --s/p vanc, cefepime in ED, will continue for now, if pt develop severe allergic reaction, consider switch to linezolid -- Patient was negative for flu -- Continue prednisone 40 mg daily -- procalcitonin 0.40 within normal limits -- Patient was positive for mycoplasma pneumonia -- Urine negative for Streptococcus pneumoniae, blood cultures negative 2 days , MRSA negative --keep telemetry, IV fluids at 80 mL an hour --O2 supplement as needed, target>92%. -- Continue albuterol and when necessary -- Continue Mucinex twice a day ?HTN -- Patient is still normotensive continue to hold beta juani. AK I on CKD2 (most likely prerenal secondary to dehydration) -- Currently resolving patient's creatinine is 0.88 -- Decrease IV fluids -- We will continue to monitor Diabetes type II -- We will restart patient's home dose of metformin 500 mg daily -- Continue insulin sliding scale -- Accu-Cheks before meals and at bedtime chronic, stable # hx of recent hospitalization with hypoklemia/contraction alkalosis due to diuretics, hold diuretics/other renal toxin for now #. Hypoparathyroidism, continue Calcitrol #. Hypothyroidism, continue Synthroid at current dose #. Seizure disorder, high of seizure given med not given recently, sepsis, will continue Lamictal #. Bilateral leg swelling ?lymphedema, unchanged per pt disposition: Patient is currently progressing well. Patient's white count is normalizing and we will continue to optimize the patient's respiratory status. Patient does have a recent history of Valium overdose. At this point clinically it would be best to discontinue the Valium at this time, but will allow the patient to have Ambien daily at bedtime. VTE Mechanical Devices: Venous Foot Pump Janny Arreaga DO Sep 15, 2016 16:40
[2016-09-15] MEDS: guaiFENesin 600 mg ER12 Tablet PO SCH (19:44)
[2016-09-16] VITALS (12 sets, daily range): BP systolic 110–140; BP diastolic 66–84; PULSE 77–96; RESP 18–20; O2SAT 93–99
[2016-09-16] MEDS: Albuterol-Ipratropium 3 mL Inhalation Solution NEB SCH ×6 (00:05→19:55)
[2016-09-16] MEDS: Cefepime Inj 1,000 MG in Dextrose 5% Minibag Plus 50 ML IV SCH ×3 (00:21→17:05)
[2016-09-16] MEDS: Codeine-guaiFENesin 10 mL Syrup PO PRN ×3 (02:43→21:25)
--- NOTE | 2016-09-16 04:11 | NUR ---
Food Patient out in the hallway upset that her snacks and dinner did not arrive. Let patient know that I am really sorry that happened to her and I will make sure that she gets snacks tonight. Patients went out to get patient dinner. Charge nurse notified. Kitchen brought up sandwiches for patient. Patient declined. Patient states I really just did it for all the other patients on the floor, I think that it is bogus that you have limited snacks up here." "I think that they are just punishing me for voicing my concerns and now I have to suffer with no dinner." Reinforced to patient that if she needs any snacks throughout the night I will be happy to provide them for her. Patient and had snacks when asked diet coke ect. Will continue to monitor and pass on to day shift team.
--- NOTE | 2016-09-16 04:12 | NUR ---
Inhaler Patient has home inhaler at bedside. she was puffing on it when I entered the room. Patient informed me that it was her own inhaler. educated patient on not using home medications. patient became very angry would not give me her inhaler and stated "That doctor is an idiot, I need my inhaler right next to me incase I start to crash." educated patient that the same medication is being given to her through her scheduled neb treatments and she could be getting too much medication resulting in adverse side effects. patient continued to refuse to give up inhaler despite education. will continue to monitor. Patient threatened to leave AMA multiple times throughout the night
--- NOTE | 2016-09-16 04:16 | NUR ---
Coughing/Sleeping Patient c/o coughing painful throughout the night, patient crying nonstop. MD notified patient medicated with cough syrup with codeine. patient reports she is coughing up copious green thick sputum. Napkins at bedside and in garbage appear crinkled with no sputum present. Patient reports cough syrup did not help. RT up to give PRN neb treatment. patient continues to cough. checked in on patient she is sitting up in bed on her computer does not appear in distress. Sleeping Patient reports she has not slept for over 48hour. patient was given Ambien and slept for 2 hours. came in to sleep at patients bedside. Patient up most of the night conversing with .
--- NOTE | 2016-09-16 05:21 | NUR ---
Refusal of Tylenol Patient refused tylenol for pain stating it is an NSAID and she cant have them. Patient requested Aleve instead. Patient educated that Tylenol is not an NSAID and Aleve is. Patient continued to refused and is requesting a narcotic or more ambien for sleep. reinforced to patient that she recently had codiene cough syrup and the maximum about of ambien. patient continued to refuse tylenol. will continue to monitor. patient appears comfortable. coughing occasionally. o2 99% on RA
[2016-09-16] MEDS: Pantoprazole 40 mg ER24 Tablet PO SCH (06:42)
[2016-09-16] MEDS: 0.9% Sodium Chloride 1,000 ML IV SCH ×2 (07:59→17:28)
[2016-09-16] MEDS: Insulin LISPRO 300 Unit/3 mL Inj SUBQ SCH ×4 (08:00→21:31)
[2016-09-16] MEDS: guaiFENesin 600 mg ER12 Tablet PO SCH ×2 (08:01→21:09)
[2016-09-16] MEDS: predniSONE 20 mg Tablet PO SCH (08:01)
[2016-09-16] MEDS: lamoTRIgine 100 mg Tablet PO SCH ×2 (08:02→21:11)
[2016-09-16] MEDS: Heparin 5,000 Unit/mL Inj SUBQ SCH ×2 (08:10→21:14)
--- NOTE | 2016-09-16 09:20 | NUR ---
JAORN signed. PUSHPA Arnold
[2016-09-16 10:20] LABS: Mean Corpuscular Hemoglobin 28.7 pg (27.0-35.0); Mean Corpuscular Volume 90.6 fL (81-100); Platelet Count 184 bil/L (150-400)
[2016-09-16 10:42] LABS: BASOPHILS % (AUTO) 1 % (0-3); EOSINOPHILS % (AUTO) 1 % (0-5); MONOCYTES % (AUTO) 10 % (4-12); NEUTROPHILS % (AUTO) 63 % (40-74)
--- NOTE | 2016-09-16 11:45 | NUR ---
Social Work-readiness for discharge: Data:EMR reviewed. Pt is on day 3 of hospitalization for pneumonia per H&P. Pt is not medically stable, anticipate in the next 1-2 days. SW followed up with pt at bedside. Pt resides at home with her and plans on returning there at discharge. Per RN notes, pt has been up independent in her room. No anticipated discharge needs. SW will continue to follow if needs arise. Assessment:Pt who is independent at baseline. Plan:Pt to discharge home when medically stable via POV. No anticipated discharge needs. SW will continue to follow if needs arise. PUSHPA Arnold
[2016-09-16] MEDS: guaiFENesin DM 200-20 mg/10 mL Syrup PO PRN (15:17)
--- NOTE | 2016-09-16 17:51 | PCM.PNMED ---
Subjective Date of Service Sep 16, 2016 Subjective Patient 56-year-old female with asthma COPD on Symbicort, albuterol prn, multiple other comorbidities presented with generalized weakness, worsening productive cough, vomiting started 3-4 days ago. Overnight, she had a temp of 38C. Otherwise, unremarkable. today, she states fatigue. "I haven't slept for 2 days" She states SOB. However on NC and without conversational dyspnea Patient had fired attending who took care of her yesterday. Exam Vital Signs Vital Sign - Last Date Time Temp Pulse Resp B/P Pulse Ox O2 Delivery O2 Flow Rate FiO2 09/16/16 16:08 77 20 96 Nasal Cannula 0.50 09/16/16 09:59 37.1 110/66 Intake and Output 09/15/16 09/15/16 09/16/16 Cumulative From/Thru 15:00 23:00 07:00 09/13/16 12:45 - 09/16/16 06:54 Intake Total 1357 ml 700 ml 7328 ml Output Total 600 ml 900 ml 5250 ml Balance 757 ml -200 ml 2078 ml Intake Oral 980 ml 700 ml 3600 ml IV Total 377 ml 3728 ml Output Urine Total 600 ml 900 ml 5250 ml # Voids 2 6 # Bowel Movements 1 1 Exam Gen: Lying comfortably at 30degree head tilt HEENT: PERRLA, Anicteric sclerae, moist conjunctivae, and no lid lag. Neck: supple, no JVD Cardio: Regular rate and rhythm with no murmurs, rubs, or gallops appreciated Pulm: b/l air sound, no crackles, b/l wheezes, no rhonchi. Normal respiratory effort with no use of accessory muscles. Abd: positive bowel tone. Soft, nontender, nondistended. Extremities: No clubbing, cyanosis, edema, or lymphadenopathy appreciated. Skin: Normal temperature, turgor, and texture; no rash, ulcers, or subcutaneous nodules appreciated. Neuro: Cranial nerves grossly intact. moving equally on all four extremities. Psyc: Normal mood and affect. AoX3 IVs and Medications Medications Reviewed: Medications were reviewed in detail Lab and Diagnostics Result Diagram: 09/16/16 0635 09/16/16 0635 X-Rays, CTs and MRIs PROCEDURE: X-RAY CHEST ONE VIEW, PORTABLE ([id number]) INDICATIONS: shortness of breath , fever , cough TECHNIQUE: One view of the chest was acquired. COMPARISON: [facility], CR, XR CHEST 1VW (PORTABLE), 08/15/2016, 16 :16. FINDINGS: Surgical changes and devices: None. Lungs and pleura: No pleural effusions or pneumothorax. Bibasilar airspace opacities present, right greater than left. Mediastinum: Mediastinal contours appear normal. Heart size is normal. Bones and chest wall: No suspicious bony lesions. Overlying soft tissues appear unremarkable. IMPRESSION: Bibasilar atelectasis versus aspiration or pneumonia. Correlate clinically. Dictated by: Remy Doe RRA Interpreted: Eugenia Madrid MD on 09/13/2016 at 13:55 Transcribed by: QAMAR on 09/13/2016 at 13:56 Assessment & Plan 56-year-old female with asthma COPD on Symbicort, albuterol prn, multiple other comorbidities presented with generalized weakness, worsening productive cough, vomiting started 3-4 days ago. acute, active Acute respiratory failure secondary to Hospital aquired pneumonia, POA, met SIRS + fever/HR/RR/wbc, likely severe sepsis given hypotension, possible source: influenza vs bacterial process. CXR showed increased RML infiltrates flu swab neg. --s/p vanc, cefepime in ED, will continue for now, if pt develop severe allergic reaction, consider switch to linezolid -- Patient was negative for flu -- Continue prednisone 40 mg daily -- procalcitonin 0.40 within normal limits -- Patient was positive for mycoplasma pneumonia -- Urine negative for Streptococcus pneumoniae, blood cultures negative 2 days , MRSA negative --keep telemetry, IV fluids at 80 mL an hour --O2 supplement as needed, target>92%. -- Continue albuterol and when necessary -- Continue Mucinex twice a day ?HTN -- Patient is still normotensive continue to hold beta juani. AK I on CKD2 (most likely prerenal secondary to dehydration) -- Currently resolving patient's creatinine is 0.88 -- Decrease IV fluids -- We will continue to monitor Diabetes type II -- We will restart patient's home dose of metformin 500 mg daily -- Continue insulin sliding scale -- Accu-Cheks before meals and at bedtime chronic, stable # hx of recent hospitalization with hypoklemia/contraction alkalosis due to diuretics, hold diuretics/other renal toxin for now #. Hypoparathyroidism, continue Calcitrol #. Hypothyroidism, continue Synthroid at current dose #. Seizure disorder, high of seizure given med not given recently, sepsis, will continue Lamictal #. Bilateral leg swelling ?lymphedema, unchanged per pt disposition: Patient is currently progressing well. Patient's white count is normalizing and we will continue to optimize the patient's respiratory status. Patient does have a recent history of Valium overdose. At this point clinically it would be best to discontinue the Valium at this time, but will allow the patient to have Ambien daily at bedtime. VTE Mechanical Devices: Intermittant Pneumatic CD Attending Statement The patient was seen and examined together with Dr. Frantz Humphreys on 09/16/2016 and I have added additional information to the note above Frantz Humphreys DO Sep 16, 2016 17:51 Andrews Brown MD Sep 25, 2016 10:50
[2016-09-17 00:02] VITALS: PULSE 82; RESP 20; O2SAT 98
[2016-09-17] MEDS: Albuterol-Ipratropium 3 mL Inhalation Solution NEB SCH ×4 (00:02→12:46)
[2016-09-17] MEDS: Cefepime Inj 1,000 MG in Dextrose 5% Minibag Plus 50 ML IV SCH ×2 (01:08→08:35)
[2016-09-17] MEDS: guaiFENesin DM 200-20 mg/10 mL Syrup PO PRN (03:44)
[2016-09-17 03:59] VITALS: PULSE 84; RESP 20; O2SAT 98
[2016-09-17 05:22] VITALS: BP 133/79; PULSE 97; RESP 20; O2SAT 97
[2016-09-17] MEDS: 0.9% Sodium Chloride 1,000 ML IV SCH (05:57)
[2016-09-17 07:15] LABS: Mean Corpuscular Hemoglobin 28.7 pg (27.0-35.0); Mean Corpuscular Volume 92.3 fL (81-100); Platelet Count 223 bil/L (150-400)
--- NOTE | 2016-09-17 07:26 | NUR ---
Cough/Anxiety Pt has intermittent hacking and painful cough, given PRN cough medication and also ambien at bedtime to help her sleep. Pt woke after a short nap and was extremely anxious and crying because her coughing was painful. Pt was repositioned in bed and propped forward and cough eased. Pt also had scheduled neb treatment. Soon after pt fell asleep and did not wake for hours, until she need to use the bathroom, she was then given more cough medication and soon returned to sleep w/out further complaints.
[2016-09-17 08:09] LABS: BASOPHILS % (AUTO) 0 % (0-3); EOSINOPHILS % (AUTO) 1 % (0-5); MONOCYTES % (AUTO) 5 % (4-12); NEUTROPHILS % (AUTO) 69 % (40-74)
[2016-09-17 08:19] VITALS: PULSE 84; RESP 18; O2SAT 97
[2016-09-17] MEDS ORDERED: predniSONE 20 mg Tablet PO SCH (08:30)
[2016-09-17] MEDS: guaiFENesin 600 mg ER12 Tablet PO SCH (08:36)
[2016-09-17] MEDS: lamoTRIgine 100 mg Tablet PO SCH (08:37)
[2016-09-17] MEDS: Pantoprazole 40 mg ER24 Tablet PO SCH (08:37)
[2016-09-17] MEDS: Insulin LISPRO 300 Unit/3 mL Inj SUBQ SCH ×2 (08:38→12:50)
[2016-09-17] MEDS: Heparin 5,000 Unit/mL Inj SUBQ SCH (08:39)
--- NOTE | 2016-09-17 10:17 | PCM.DIMED ---
Frantz Humphreys DO 09/17/16 1006: Discharge Instructions Date of Service Sep 17, 2016 Dates of Hospitalization Sep 13, 2016 at 16:09 Discharge Diagnosis Discharge Diagnosis Acute respiratory failure, present on admission, resolved Hospital acquired pneumonia, present on admission, resolving --You will need to take Doxycycline twice daily for 5days --You will also need to take one more day of prednisone --Guaifenesin with codeine: 15ml every 4-6hrs for cough --First Mouth wash 1oz swish and spit as needed for sore throat Sepsis, present on admission, resolved Acute kidney injury, present on admission, resolved Chronic issue, present on admission, stable HTN Diabetes type II Hypoparathyroidism Hypothyroidism Migraines Diet Heart Healthy Activity No restrictions Call your provider Fever or Chills, Shortness of breath, Chest pain, Excessive diarrhea Patient Instructions Acute respiratory failure, present on admission, resolved Hospital acquired pneumonia, present on admission, resolving --You will need to take Augmentin twice daily --You will also need to take one more day of prednisone --Guaifenesin with codeine: 15ml every 4-6hrs for cough Sepsis, present on admission, resolved Acute kidney injury, present on admission, resolved Chronic issue, present on admission, stable HTN Diabetes type II Hypoparathyroidism Hypothyroidism Migraines Follow-up Provider: OTHER,PHYSICIAN Follow-up with PCP in: 1 week (Please follow up with your primary care provider. Dr. SHEFALI TANNER) Gage Roy DO 09/17/16 1649: Discharge Instructions Attending's Statement Read and agree Frantz Humphreys DO Sep 17, 2016 10:06 Gage Roy DO Sep 17, 2016 16:49
[2016-09-17] MEDS ORDERED: DOXY100T2 PO (10:35)
[2016-09-17] MEDS ORDERED: GUAI5LIQ PO (10:44)
[2016-09-17] MEDS: Codeine-guaiFENesin 10 mL Syrup PO PRN (11:23)
[2016-09-17] MEDS ORDERED: PRE20 PO (12:21)
[2016-09-17 13:00] VITALS: PULSE 80; RESP 18; O2SAT 95
--- NOTE | 2016-09-17 13:12 | NUR ---
Social Work-discharge: Data:EMR Reviewed. Pt is on day 4 of hospitalization for pneumonia per H&P. Pt is medically stable to discharge home today. Pt has been up independent in her room. Pt 's to provide transport home. No discharge needs identified. All updated and agreeable to plan. Assessment:Pt who is independent at baseline. Plan:Pt to discharge home today via POV. No discharge needs identified. All updated and agreeable to plan. PUSHPA Arnold
--- NOTE | 2016-09-17 13:17 | NUR ---
Discharge Patient discharge to home with all belongings at 1317. Explained to patient new medications (doxycycline, guaifenasin-codeine, prednisone, and mouth wash), when next medications are due and discharge instructions. Patient verbalized understanding. Dc'd IV intact. Vitals stable. Patient left floor via wheelchair accompanied by and SOIL CON[employer]ATION TEACHER with no signs of distress.
--- NOTE | 2016-09-17 15:10 | PCM.DC.MED ---
Discharge Summary Date of Service Sep 17, 2016 Dates of Hospitalization Date of Hospital Admission Sep 13, 2016 at 16:09 Date of Discharge: Sep 17, 2016 Providers: Admitting Physician: Wali Queen MD Primary Care Physician: Mauricio Varma MD Attending Physician: Wali Queen MD Diagnosis at Time of Discharge Diagnosis at Time of Discharge Acute respiratory failure, present on admission, resolved Hospital acquired pneumonia, present on admission, resolving --You will need to take Doxycycline twice daily for 5days --You will also need to take one more day of prednisone --Guaifenesin with codeine: 15ml every 4-6hrs for cough --First Mouth wash 1oz swish and spit as needed for sore throat Sepsis, present on admission, resolved Acute kidney injury, present on admission, resolved Chronic issue, present on admission, stable HTN Diabetes type II Hypoparathyroidism Hypothyroidism Migraines Procedures XRay, CTs & MRIs PROCEDURE: X-RAY CHEST ONE VIEW, PORTABLE ([id number]) INDICATIONS: shortness of breath , fever , cough TECHNIQUE: One view of the chest was acquired. COMPARISON: Merged With [facility], CR, XR CHEST 1VW (PORTABLE), 08/15/2016, 16 :16. FINDINGS: Surgical changes and devices: None. Lungs and pleura: No pleural effusions or pneumothorax. Bibasilar airspace opacities present, right greater than left. Mediastinum: Mediastinal contours appear normal. Heart size is normal. Bones and chest wall: No suspicious bony lesions. Overlying soft tissues appear unremarkable. IMPRESSION: Bibasilar atelectasis versus aspiration or pneumonia. Correlate clinically. Dictated by: Remy Doe RR Interpreted: Eugenia Madrid MD on 09/13/2016 at 13:55 Transcribed by: QAMAR on 09/13/2016 at 13:56 Brief History 56-year-old female with active smoker, asthma COPD on Symbicort, albuterol prn, multiple other commodities presented with generalized weakness, worsening productive cough, vomiting started 3-4 days ago. Patient was in usual state of health until 4 days ago, thinks that she was exposed to one of the grandsons possibly who were coughing, started feeling unwell, coughing, decreased appetite, cough has gradually gotten worse starting to become productive. Patient has been using albuterol frequently to the point that patient used all months every hours all day yesterday, however symptoms were worse, also had one episode of vomiting after she took [id number] cough syrup. Also noted to have severe difficulty breathing even with frequent , decided to come to the hospital. Patient waited until today because her hospital and did not want her to be in the hospital because all multiple hospitalizations in the past. During this course, patient was only able to use inhalers but not able to take oral pills. Of note, pt quit smoking for 10yrs but started smoking 3ppd for 2month due to stress, depression, stopped smoking since she got sick. Patient also endorsed fever and chills, no nausea vomiting constipation diarrhea , abdominal pain, recent travel, chest pain, palpitation. In emergency room, vital signs initial systolic 100s, tachycardic to 90 findings , tachypneic to 20s,hypoxic to 90% on room air, fever 38.4. Patient received neb treatment, vancomycin and cefepime given multiple drug allergies, solu- medrol. During the interview in the emergency room, patient fell asleep during conversation, noted to have blood pressure low to 90/40, intermittently coughing. Although mentating well, oriented, I asked ED provider to start bolus 2 L Hospital Course Patient 56-year-old female with MHx significant for asthma, COPD on Symbicort, multiple other comorbidities presented with generalized weakness, worsening productive cough, vomiting started 3-4 days prior to admission. She was admitted and treated for hospital acquired pneumonia. Patient responded well to cefepime and fluids. Acute respiratory failure, present on admission, resolved -- O2 89% on rm air. bounced to 95% with O2 Hospital acquired pneumonia, present on admission, resolving -- CXR showed increased RML infiltrates, flu swab neg. Recently hospitalized on Jul -- Procalcitonin 0.69 on admission, decreased to 0.17 on discharged. Blood cultures, urinary Ig, and Resp Viral PCR unremarkable. -- Patient likely had pneumonia, improved with antibiotics -- On discharge -- Doxycycline twice daily for 5days -- Received 4/5 days prednisone. Will received one more dose 09/18 -- Guaifenesin with codeine: 15ml every 4-6hrs for cough -- First Mouth wash 1oz swish and spit as needed for sore throat Sepsis, present on admission, resolved -- Met SIRS+ fever/HR/RR/wbc, severe sepsis given hypotension -- Likely influenza vs bacterial process. Acute kidney injury, present on admission, resolved -- Based line Cr 0.75, increased 1.12 -- Resolved with fluid hydration Chronic issue, present on admission, stable HTN Diabetes type II, A1C 6.8 Hypoparathyroidism Hypothyroidism, TSH 2.31 Migraines COPD, recommend PFT 6wks from discharge. D/C Valium on discharge. Patient does have a recent history of Valium overdose. At this point clinically it would be best to discontinue the Valium. Exam Vital Signs (Last) Date Time Temp Pulse Resp B/P Pulse Ox O2 Delivery O2 Flow Rate FiO2 09/17/16 13:00 80 18 95 Room Air 09/17/16 08:19 0.50 09/17/16 05:22 36.9 133/79 Test 09/13/16 13:30 09/13/16 15:25 09/13/16 15:35 09/13/16 18:25 Lactic Acid Level 1.6mmol/L (0.4-2.0) Troponin T < 0.010ug/L (0.0-0.011) Urine Legionella pneumophilia Ag Negative (Negative) Hold [place]ers Top Tube Received (Received) Urine Color Yellow (YELLOW) Urine Appearance Clear (CLEAR,HAZY) Urine pH 6.5 (5.0-8.0) Urine Specific [place] 1.010 (1.003-1.035) Urine Protein Tracemg/dL (NEG,TRACE) Urine Glucose (UA) Negativemg/dL (NEGATIVE) Urine Ketones Negativemg/dL (NEGATIVE) Urine Occult Blood Trace (NEGATIVE) Urine Nitrite Negative (NEGATIVE) Urine Bilirubin Negative (NEGATIVE) Urine Urobilinogen Normalmg/dL (NORMAL) Urine Leukocyte Esterase Negative (NEGATIVE) Urine RBC 0-2/hpf (0-2) Urine WBC 0-5/hpf (0-5) Urine Epithelial Cells Occasional/hpf (NONE-MOD) Urine Crystals None seen (NONE SEEN) Urine Bacteria None/hpf (NONE-FEW) Urine Hyaline Casts Rare/lpf (NONE) Urine Granular Casts None seen (NONE SEEN) Urine Waxy Casts None seen (NONE SEEN) Urine Red Blood Cell Casts None seen (NONE SEEN) Urine White Blood Cell Casts None seen (NONE SEEN) Urine Mucus Present (None Seen) Urine Trichomonas None seen (NONE SEEN) Urine Yeast None (NONE SEEN) Urinalysis Comment None Urine Culture Reflexed Not indicated Test 09/14/16 07:50 09/15/16 07:50 09/16/16 06:35 09/17/16 06:35 Phosphorus Level 2.0mg/dL (2.5-4.9) Magnesium Level 2.0mg/dL (1.6-2.6) Total Bilirubin 0.2mg/dL (0.0-1.2) Aspartate Amino Transf (AST/SGOT) 24U/L (0-50) Alanine Aminotransferase (ALT/SGPT) 14U/L (0-32) Alkaline Phosphatase 71U/L (25-150) Total Protein 5.6g/dL (6.4-8.4) Albumin 3.3g/dL (3.4-5.0) Hemoglobin A1c 6.8% (4.8-5.6) Procalcitonin 0.17ng/mL (See Comment) White Blood Count 11.7th/mm3 (3.8-10.1) Red Blood Count 3.90mil/mm3 (3.90-5.20) Hemoglobin 11.2g/dL (12.0-15.6) Hematocrit 36.0% (35.0-46.0) Mean Corpuscular Volume 92.3fL (81-100) Mean Corpuscular Hemoglobin 28.7pg (27.0-35.0) Mean Corpuscular Hemoglobin Concent 31.1% (32.0-37.0) Red Cell Distribution Width 14.9% (12.3-15.4) Platelet Count 223bil/L (150-400) Neutrophils (%) (Auto) 69% (40-74) Lymphocytes (%) (Auto) 21% (14-46) Monocytes (%) (Auto) 5% (4-12) Eosinophils (%) (Auto) 1% (0-5) Basophils (%) (Auto) 0% (0-3) Band Neutrophils % 2% (1-5) Metamyelocytes % 1% (0-0) Myelocytes % 1% (0-0) Sodium Level 143mEq/L (134-144) Potassium Level 3.8mEq/L (3.5-5.2) Chloride Level 105mEq/L (97-108) Carbon Dioxide Level 23mmol/L (18-29) Blood Urea Nitrogen 15mg/dL (6-24) Creatinine 0.79mg/dL (0.57-1.00) Estimat Glomerular Filtration Rate 107mL/min (>59) Glucose Level 178mg/dL (60-99) Calcium Level 7.8mg/dL (8.5-10.1) Discharge Medications Discharge Medications Ascorbic Acid (Vitamin C) 500 Mg Capsule.er 500 MG PO DAILY (Reported) Budesonide/Formoterol 160-4.5 mcg Inh (Symbicort 160-4.5 mcg Inh) 120 Puff Inhaler 2 PUFF INHALATION BID (Reported) Bumetanide (Bumetanide) 1 Mg Tablet 1 MG PO BID (Reported) Calcitriol (Rocaltrol) 0.25 Mcg Capsule 0.5 MCG PO DAILY (Reported) Cyanocobalamin (Cyanocobalamin Injection) 1,000 Mcg/1 Ml Vial 1 ML IM monthly ( Reported) administer on the 1st of the month Doxycycline Hyclate (Doxycycline Hyclate) 100 Mg Tablet 100 MG PO BID Prescribed by: ANNE BRITO DO Gabapentin (Gabapentin) 300 Mg Capsule 300 MG PO HS (Reported) Gabapentin (Gabapentin) 100 Mg Capsule 100 MG PO QAM (Reported) Guaifenesin/Codeine Phosphate (Guaifenesin-Codeine Syrup) 5 Ml Liquid 5 ML PO Q6H Prescribed by: ANNE BRITO DO Lamotrigine (Lamictal) 200 Mg Tablet 200 MG PO BID (Reported) Levothyroxine (Levothyroxine) 75 Mcg Tablet 75 MCG PO DAILY (Reported) Magnesium Oxide (Magnesium Oxide) 420 Mg Tablet 420 MG PO DAILY (Reported) Metformin (Metformin) 500 Mg Tablet 1,500 MG PO DAILY (Reported) Mirtazapine (Mirtazapine) 30 Mg Tablet 30 MG PO HS (Reported) Omeprazole (Omeprazole) 20 Mg Capsule.dr 20 MG PO DAILY (Reported) Potassium Citrate ER (Potassium Citrate ER) 10 Meq Tablet 20 MEQ PO DAILY TAKE WITH FOOD Prescribed by: CINDY STROUD MD Prednisone (PredniSONE) 20 Mg Tablet 40 MG PO DAILY take this pill tomorrow in the morning (09/18) Prescribed by: ANNE BRITO DO Spironolactone (Spironolactone) 50 Mg Tablet 50 MG PO DAILY (Reported) As needed Albuterol HFA (Proair HFA) 8.5 Gm Hfa.aer.ad 2 PUFFS INHALATION Q4H PRN PRN For Shortness of Breath (Reported) Albuterol Neb Soln (Albuterol Neb Soln) 2.5 Mg/3 Ml Vial.neb 3 ML INHALATION QID PRN PRN For Shortness of Breath (Reported) Baclofen (Baclofen) 10 Mg Tablet 10 MG PO TID PRN PRN For Spasm (Reported) Propylene Glycol (Systane Balance) 10 Ml Drops 1 DROP BOTH_EYES 5XD PRN PRN For Eye Irritation (Reported) Followup Plan Discharge Diet: Heart Healthy Discharge Activity: No restrictions Patient Instructions Acute respiratory failure, present on admission, resolved Hospital acquired pneumonia, present on admission, resolving --You will need to take Augmentin twice daily --You will also need to take one more day of prednisone --Guaifenesin with codeine: 15ml every 4-6hrs for cough Sepsis, present on admission, resolved Acute kidney injury, present on admission, resolved Chronic issue, present on admission, stable HTN Diabetes type II Hypoparathyroidism Hypothyroidism Migraines Follow-up Provider: OTHER,PHYSICIAN Follow-up with PCP in: 1 week (Please follow up with your primary care provider. Dr. SHEFALI TANNER) Time spent 40 minutes Attending Statement I have seen and evaluated patient in addition to directly supervising care provided by resident physician. I agree with above documentation. copies to: Anne Robles DO Sep 17, 2016 15:09 Gage Roy DO Sep 17, 2016 16:53
== END 2016-09-17 13:20 | disposition home or self-care (01) | DRG 871 ==
LOC: SED 12:28 → MPC 16:09
PROVIDERS: ADMIT Internal Medicine; ATTEND Internal Medicine
DX: A41.9 Sepsis, unspecified organism (principal); J18.9 Pneumonia, unspecified organism; J96.01 Acute respiratory failure with hypoxia; G43.909 Migraine, unspecified, not intractable, without status migrainosus; G89.29 Other chronic pain; E78.5 Hyperlipidemia, unspecified; F43.10 Post-traumatic stress disorder, unspecified; J44.9 Chronic obstructive pulmonary disease, unspecified; G47.33 Obstructive sleep apnea (adult) (pediatric); E11.9 Type 2 diabetes mellitus without complications; F17.210 Nicotine dependence, cigarettes, uncomplicated; G40.909 Epilepsy, unspecified, not intractable, without status epilepticus; E03.9 Hypothyroidism, unspecified; I12.9 Hypertensive chronic kidney disease with stage 1 through stage 4 chronic kidney disease, or unspecified chronic kidney disease; N18.2 Chronic kidney disease, stage 2 (mild); E86.0 Dehydration; E20.9 Hypoparathyroidism, unspecified; Z79.51 Long term (current) use of inhaled steroids; Z88.0 Allergy status to penicillin

== ENCOUNTER 2016-10-22 01:51 | Emergency (ER) | payer OTHER, MEDICARE ==
[~2016-10-22] VITALS: Ht 162.6 cm; Wt 96.8 kg
[~2016-10-22 01:51] MED LIST changes: -DIAZ10TA3 PO; +DOXY100T2 PO; +GUAI5LIQ PO; -METO50TA3 PO; -PRAV20TA2 PO; +PRE20 PO; -TRAZ-118 PO
[2016-10-22 02:10] VITALS: BP 149/100; PULSE 104; RESP 18; O2SAT 93
--- NOTE | 2016-10-22 02:43 | ED.REPORT ---
HPI-Abd Pain F 40 and Over Date of Service Oct 22, 2016 ED Provider: Patrick Reno MD This is a 56 year old female with a history of recent pneumonia, DM, diverticulosis, hiatal hernia, gastroparesis, COPD, and HTN presenting to the emergency department complaining of abdominal pain that began 4 hours ago. Reports diffuse pain that is associated with several episodes of emesis and diarrhea in the last hour. Also reports persistent cough, dyspnea, headache, leg pain, and diffuse myalgias. Denies fever, chills, dysuria, hematemesis, or hematochezia. Completed steroids and antibiotics for pneumonia in the last week. Nursing Notes Stated Complaint: VOMITING,DIABETIC Chief Complaint: Female Abdominal Pain Nursing Notes Reviewed: Yes Allergies: Coded Allergies: Penicillins (Verified Allergy, Severe, rash/seizures/vomiting, 10/22/16) ciprofloxacin HCl (Verified Allergy, Severe, Hive from head to toe, fever , and painful skin, 10/22/16) methylphenidate HCl (Verified Allergy, Severe, itching/rash/vomitting, 10/22) phenytoin sodium extended (Verified Allergy, Severe, rash/hives, 10/22/16) sumatriptan (Verified Allergy, Severe, causing migraines, 10/22/16) cephalexin (Verified Allergy, Intermediate, Nausea,Vomiting, 10/22/16) Sulfa (Sulfonamide Antibiotics) (Verified Allergy, Unknown, rash,seizure, 10/22/16) metoclopramide HCl (Verified Adverse Reaction, Unknown, pt says it doesn' t work, 10/22/16) Scheduled Ascorbic Acid (Vitamin C) 500 Mg Capsule.er 500 MG PO DAILY Budesonide/Formoterol 160-4.5 mcg Inh (Symbicort 160-4.5 mcg Inh) 120 Puff Inhaler 2 PUFF INHALATION BID Bumetanide (Bumetanide) 1 Mg Tablet 1 MG PO BID Calcitriol (Rocaltrol) 0.25 Mcg Capsule 0.5 MCG PO DAILY Cyanocobalamin (Cyanocobalamin Injection) 1,000 Mcg/1 Ml Vial 1 ML IM monthly administer on the 1st of the month Doxycycline Hyclate (Doxycycline Hyclate) 100 Mg Tablet 100 MG PO BID Gabapentin (Gabapentin) 300 Mg Capsule 300 MG PO HS Gabapentin (Gabapentin) 100 Mg Capsule 100 MG PO QAM Guaifenesin/Codeine Phosphate (Guaifenesin-Codeine Syrup) 5 Ml Liquid 5 ML PO Q6H Lamotrigine (Lamictal) 200 Mg Tablet 200 MG PO BID Levothyroxine (Levothyroxine) 75 Mcg Tablet 75 MCG PO DAILY Magnesium Oxide (Magnesium Oxide) 420 Mg Tablet 420 MG PO DAILY Metformin (Metformin) 500 Mg Tablet 1,500 MG PO DAILY Mirtazapine (Mirtazapine) 30 Mg Tablet 30 MG PO HS Omeprazole (Omeprazole) 20 Mg Capsule.dr 20 MG PO DAILY Ondansetron ODT (Ondansetron ODT) 8 Mg Tab.rapdis 4-8 MG PO QID Potassium Citrate ER (Potassium Citrate ER) 10 Meq Tablet 20 MEQ PO DAILY TAKE WITH FOOD Prednisone (PredniSONE) 20 Mg Tablet 40 MG PO DAILY take this pill tomorrow in the morning (09/18) Spironolactone (Spironolactone) 50 Mg Tablet 50 MG PO DAILY Scheduled PRN Albuterol HFA (Proair HFA) 8.5 Gm Hfa.aer.ad 2 PUFFS INHALATION Q4H PRN PRN For Shortness of Breath Albuterol Neb Soln (Albuterol Neb Soln) 2.5 Mg/3 Ml Vial.neb 3 ML INHALATION QID PRN PRN For Shortness of Breath Baclofen (Baclofen) 10 Mg Tablet 10 MG PO TID PRN PRN For Spasm Propylene Glycol (Systane Balance) 10 Ml Drops 1 DROP BOTH_EYES 5XD PRN PRN For Eye Irritation General Time Seen by MD: 02:18 Chief Complaint Vomiting moderate Hx Obtained From: Patient Arrived By: Walk-in Sudden in Onset?: Yes Onset Occurred: Yesterday Symptom Duration: Since onset Severity: Current: Moderate Pertinent Negative: Pt denies other symptoms Recent Healthcare: No recent doctor visit, No recent hospitalization Similar Sx Previous: No Past Medical History Past Medical History Notes: PCP: Dr. Lambert Past Medical History Anxiety Hypoparathyroid Migraines Fatty liver disease Nephrocalcinosis Diverticulosis DM Hiatal hernia Chronic pain PTSD DDD Hyperlipidemia IBS Gastroparesis Ovarian cysts - removed glaucoma cataracts Extra rib ADHD Obstructive Sleep Apnea Hypopituitarism Asthma Cancer COPD GERD Hypertension Chronic lymphedema Past Surgical History LEEP, hemorrhoid surgery Spinal stenosis Shoulder surgery Meniscus repair Lumpectomy Reports: Hysterectomy Reports: Back/neck surgery, Tubal ligation Family History Hyperlipidemia Reports: Diabetes mellitus Reports: Cancer Smoking History Former Smoker Social History Patient quit smoking 10 years ago but recently began again Alcohol Use: Denies alcohol use Drug Use: Denies drug use, THC Other Social History: Local resident Ambulatory Status Walker Review of Systems Constitutional: Denies: Chills, Fever Respiratory: Denies: Parox nocturnal dyspnea, Shortness of breath Cardiovascular: Denies: Chest pain GI: Reports: Nausea, Vomiting Complete sys rev & neg: except as marked. Neurologic: Reports: Headache Physical Exam Vital Signs Vital Signs (First) Date Time Temp Pulse Resp B/P Pulse Ox O2 Delivery O2 Flow Rate FiO2 10/22/16 02:10 36.3 104 18 149/100 93 Room Air Initial VS: Reviewed, Vital signs abnormal Head / Eyes: Atraumatic, Normocephalic, PERRL Neck: Supple, Non-tender, Full range of motion Extremities: Vascular intact, Neuro intact, No swelling, No tenderness Skin: Warm, Dry, No cyanosis Neurologic: Alert, Oriented, Nonfocal Psychiatric: Mood/affect normal, Behavior normal, Normal thought content General/Constitutional: Awake, Alert Respiratory / Chest: Breath sounds NL, Breath sounds = bilat, No respiratory distress, No rales, No rhonchi, No wheezing, No stridor Cardiovascular: Heart rate NL, Regular rhythm, Heart sounds NL, Peripheral circulation NL Abdomen: BS normoactive Tenderness/Guarding/Rebound: Positive: Tender diffuse Back: Inspection NL, Non-tender, No CVA tenderness Interpretation & Diagnostics CT ABD PELVIS CONCLUSION: No specific acute abnormality. Diffuse fatty infiltration of the liver. RADIOLOGIST: Tavares Rogers MD Lab Results Interpretation Result Diagram: 10/22/16 0230 10/22/16 0230 Test 10/22/16 02:30 10/22/16 05:00 White Blood Count 14.4th/mm3 (3.8-10.1) Red Blood Count 5.60mil/mm3 (3.90-5.20) Hemoglobin 15.4g/dL (12.0-15.6) Hematocrit 48.3% (35.0-46.0) Mean Corpuscular Volume 86.3fL (81-100) Mean Corpuscular Hemoglobin 27.5pg (27.0-35.0) Mean Corpuscular Hemoglobin Concent 31.9% (32.0-37.0) Red Cell Distribution Width 16.3% (12.3-15.4) Platelet Count 295bil/L (150-400) Neutrophils (%) (Auto) 65.4% (40-74) Lymphocytes (%) (Auto) 25.7% (14-46) Monocytes (%) (Auto) 7.2% (4-12) Eosinophils (%) (Auto) 0.6% (0-5) Basophils (%) (Auto) 0.3% (0-3) Hold Purple Top Tube Received (Received) Prothrombin Time 10.9sec (8.1-12.5) Prothromb Time International Ratio 1.02ratio Hold Blue Top Tube Received (Received) Sodium Level 140mEq/L (134-144) Potassium Level 3.4mEq/L (3.5-5.2) Chloride Level 97mEq/L (97-108) Carbon Dioxide Level 24mmol/L (18-29) Blood Urea Nitrogen 29mg/dL (6-24) Creatinine 1.22mg/dL (0.57-1.00) Estimat Glomerular Filtration Rate 65mL/min (>59) Glucose Level 144mg/dL (60-99) Lactic Acid Level 1.5mmol/L (0.4-2.0) Calcium Level 9.8mg/dL (8.5-10.1) Magnesium Level 1.8mg/dL (1.6-2.6) Total Bilirubin 0.3mg/dL (0.0-1.2) Aspartate Amino Transf (AST/SGOT) 16U/L (0-50) Alanine Aminotransferase (ALT/SGPT) 18U/L (0-32) Alkaline Phosphatase 110U/L (25-150) Total Protein 6.7g/dL (6.4-8.4) Albumin 4.1g/dL (3.4-5.0) Lipase 20U/L (13-60) Hold [place] Top Tube Received (Received) Hold Bowers Top Tube Received (Received) Urine Color Straw (YELLOW) Urine Appearance Clear (CLEAR,HAZY) Urine pH 7.0 (5.0-8.0) Urine Specific [place] 1.010 (1.003-1.035) Urine Protein Negativemg/dL (NEG,TRACE) Urine Glucose (UA) Negativemg/dL (NEGATIVE) Urine Ketones Negativemg/dL (NEGATIVE) Urine Occult Blood Negative (NEGATIVE) Urine Nitrite Negative (NEGATIVE) Urine Bilirubin Negative (NEGATIVE) Urine Urobilinogen Normalmg/dL (NORMAL) Urine Leukocyte Esterase Negative (NEGATIVE) Urine RBC 0-2/hpf (0-2) Urine WBC 0-5/hpf (0-5) Urine Epithelial Cells Moderate/hpf (NONE-MOD) Urine Crystals None seen (NONE SEEN) Urine Bacteria Few/hpf (NONE-FEW) Urine Hyaline Casts None/lpf (NONE) Urine Granular Casts None seen (NONE SEEN) Urine Waxy Casts None seen (NONE SEEN) Urine Red Blood Cell Casts None seen (NONE SEEN) Urine White Blood Cell Casts None seen (NONE SEEN) Urine Mucus Present (None Seen) Urine Trichomonas None seen (NONE SEEN) Urine Yeast None (NONE SEEN) Urinalysis Comment None Urine Culture Reflexed Not indicated Lab Results Interpretation: Elevated white blood count mild, acute kidney injury ECG Interpretation ECG Interpretation: Sinus tachycardia at a rate of 101 Time: 03:25 Interpreted by: ED physician Normal ECG Interpretation: Normal sinus rhythm X-Ray Chest Interpretation Interpretation / Wet Read by: Wet read ED physician NL X-Ray Chest Findings: No acute disease Re-Eval/Medical Decision Med Decision/Clinical Course 56-year-old female who presents with nausea vomiting and diarrhea. She appears dehydrated and was given fluids. There were no significant lab abnormalities. Imaging showed no serious or surgical abnormalities. It is most likely that her current symptoms are due to gastroenteritis, probably norovirus. She is being discharged home with ondansetron and instructions to use Imodium. Counseled Regarding: Diagnosis, Lab results, Need for follow-up, When/why to return to ED Discharge & Departure Primary Impression: Gastroenteritis Additional Impression: YVES (acute kidney injury) Disposition: Home Discharge Condition All VS Reviewed: Yes Condition: Stable Patient Instructions: Gastroenteritis (ED) Additional Instructions: Your nausea, vomiting,diarrhea and dehydration are most likely secondary to gastroenteritis, probably from norovirus. Drink plenty of fluids. Imodium 2 mg , 2 pills initially then one by mouth after each loose bowel movement up to a max of 8 pills per day. Ondansetron 8 mg ODT, one half to one tablet dissolved orally 4 times a day, #20 prescription written. Referrals: Mauricio Varma MD (PCP) Scribe Attestation Portions of this note were transcribed by Min Palomino. I, Dr. Reno personally performed the history, physical exam and medical decision-making; I reviewed and confirmed the accuracy of the information in the transcribed note. Signed by: staci Calvin. 10/21/2016, 06:00. Patrick Reno MD Oct 22, 2016 02:43 MIN PALOMINO Oct 22, 2016 02:50
[2016-10-22] MEDS ORDERED: 0.9% Sodium Chloride 1,000 ML IV ONE (02:48)
[2016-10-22] MEDS ORDERED: Albuterol-Ipratropium 3 mL Inhalation Solution NEB ONE (02:50)
[2016-10-22 02:57] LABS: BASOPHILS % (AUTO) 0.3 % (0-3); EOSINOPHILS % (AUTO) 0.6 % (0-5); MONOCYTES % (AUTO) 7.2 % (4-12); Mean Corpuscular Hemoglobin 27.5 pg (27.0-35.0); Mean Corpuscular Volume 86.3 fL (81-100); NEUTROPHILS % (AUTO) 65.4 % (40-74); Platelet Count 295 bil/L (150-400)
[2016-10-22 03:04] LABS: INR 1.02 ratio
[2016-10-22 03:09] VITALS: PULSE 99; RESP 18; O2SAT 99
[2016-10-22] MEDS: HYDROmorphone 1 mg/mL Inj IVPUSH PRN ×3 (03:10→04:47)
[2016-10-22 03:11] LABS: Magnesium 1.8 mg/dL (1.6-2.6)
[2016-10-22] MEDS: Ondansetron 2 mg/mL 2 mL Inj IVPUSH PRN ×3 (03:23→04:47)
[2016-10-22 05:09] LABS: APPEARANCE,URINE CLEAR (CLEAR,HAZY); COLOR,URINE STRAW (YELLOW); OCCULT BLOOD,URINE NEGATIVE (NEGATIVE); UROBILINOGEN,URINE NORMAL (NORMAL)
[2016-10-22] MEDS ORDERED: ONDA8TAB10 PO (05:36)
[2016-10-22 05:47] VITALS: BP 152/92; PULSE 108; RESP 18; O2SAT 94
--- NOTE | 2016-10-22 08:49 | DRSVH ---
PROCEDURE: X-RAY CHEST, TWO VIEWS ([id number]) INDICATIONS: followup pneumonia, worsening TECHNIQUE: 2 views of the chest were acquired. COMPARISON: [facility], CR, XR CHEST 1VW (PORTABLE), 09/13/2016, 12:58. FINDINGS: Surgical changes and devices: Low cervical spine fixation hardware redemonstrated. Lungs and pleura: No pleural effusions or pneumothorax. Lungs are clear. Mediastinum: Mediastinal contours are normal. Heart size is normal. Bones and chest wall: No suspicious bony abnormalities. Soft tissues appear unremarkable. IMPRESSION: Resolved pneumonia. Dictated by: Remy Doe RRA Interpreted: Eugenia Madrid MD on 10/22/2016 at 8:48 Transcribed by: QAMAR on 10/22/2016 at 8:49 Approved by: Eugenia Madrid MD, PhD on 10/22/2016 at 9:58
--- NOTE | 2016-10-22 09:22 | DRSVH ---
PROCEDURE: CT ABDOMEN AND PELVIS WITH CONTRAST ([id number]) INDICATIONS: 56 year-old woman with diffuse abdominal pain and nausea. TECHNIQUE: After the administration of intravenous contrast, 5 mm thick sections acquired from the diaphragm to the symphysis. 5 mm coronal and sagittal reformats were acquired. For radiation dose reduction, the following was used: automated exposure control, adjustment of mA and/or kV according to patient siz e. COMPARISON: [facility], CT, ABD/PELVIS W/CON (PN), 07/11/2009, 7:33. FINDINGS: Image quality: Excellent. ABDOMEN: Lung bases: Lung bases are clear. Heart size is normal. Small hiatal hernia. Solid organs: There is diffuse hepatic fatty infiltration. Liver and spleen are normal in size and e nhancement. Gallbladder is normal. Biliary system is non dilated. Pancreas enhances normally. No adrenal nodules. Kidneys demonstrate normal size and enhancement, without hydronephrosis. Peritoneum and bowel: Bowel loops demonstrate normal wall thickness and caliber. Appendix is normal . No free fluid or air. Nodes and vessels: No retroperitoneal or mesenteric adenopathy by size criteria. Aorta and inferior vena cava are normal in size. Miscellaneous: No ventral hernias. PELVIS: Genitourinary: Bladder wall thickness is normal. Uterus is absent. No adnexal mass or pelvic free f luid. Miscellaneous: No inguinal hernias or adenopathy. Bones: No suspicious bony lesions. No vertebral body compression fractures. Degenerative and post surgical changes in lumbar spine. IMPRESSION: 1. No acute abdominal process. 2. Small hiatal hernia. 3. Hepatic steatosis. No significant discrepancy with the dat instructor radiology preliminary report. Dictated by: Muna Barroso M.D. on 10/22/2016 at 9:16 Approved by: Muna Barroso M.D. on 10/22/2016 at 9:21
== END 2016-10-22 05:51 | disposition home or self-care (01) ==
LOC: SED 01:51
DX: K52.9 Noninfective gastroenteritis and colitis, unspecified (principal); N17.9 Acute kidney failure, unspecified; I10 Essential (primary) hypertension; E11.43 Type 2 diabetes mellitus with diabetic autonomic (poly)neuropathy; K31.84 Gastroparesis; K21.9 Gastro-esophageal reflux disease without esophagitis; K57.90 Diverticulosis of intestine, part unspecified, without perforation or abscess without bleeding; K44.9 Diaphragmatic hernia without obstruction or gangrene; J44.9 Chronic obstructive pulmonary disease, unspecified; J18.9 Pneumonia, unspecified organism; K58.9 Irritable bowel syndrome, unspecified; Z79.84 Long term (current) use of oral hypoglycemic drugs; Z87.891 Personal history of nicotine dependence; Z88.0 Allergy status to penicillin; Z88.1 Allergy status to other antibiotic agents; Z88.2 Allergy status to sulfonamides; Z88.8 Allergy status to other drugs, medicaments and biological substances
CPT/HCPCS: 36415; 71020; 74177; 80053; 81000; 83605; 83690; 83735; 85025; 85610; 93005; 94664; 96361; 96374; 96375; 96376; 99285; J1170; J2405; J7030; J7620; Q9967

== ENCOUNTER 2016-12-04 16:36 | Emergency (ER) | payer MEDICARE, OTHER ==
[~2016-12-04] VITALS: Ht 162.6 cm; Wt 96.4 kg
[2016-12-04] VITALS (7 sets, daily range): BP systolic 111–156; BP diastolic 69–109; PULSE 75–88; RESP 13–22; O2SAT 94–98
[~2016-12-04 16:36] MED LIST changes: +ONDA8TAB10 PO
[2016-12-04 17:31] LABS: BASOPHILS % (AUTO) 0.3 % (0-3); EOSINOPHILS % (AUTO) 0.6 % (0-5); MONOCYTES % (AUTO) 3.9 % (4-12); Mean Corpuscular Volume 88.9 fL (81-100); NEUTROPHILS % (AUTO) 75.2 % (40-74); Platelet Count 235 bil/L (150-400)
[2016-12-04] MEDS ORDERED: Ondansetron 2 mg/mL 2 mL Inj IVPUSH PRN (17:50)
[2016-12-04 17:54] LABS: Magnesium 1.9 mg/dL (1.6-2.6)
[2016-12-04] MEDS ORDERED: 0.9% Sodium Chloride 1,000 ML IV ONE ×2 (18:45→19:30)
[2016-12-04] MEDS ORDERED: LidocaineVisc 2%:Antacid 1:1 10 mL Syringe PO ONE (18:50)
--- NOTE | 2016-12-04 18:51 | ED.REPORT ---
HPI-Abd Pain F 40 and Over Date of Service Dec 04, 2016 ED Provider: Jeremy An PA-C Rod is a 48-year-old female with a history of gastroparesis, kidney injury, diabetes, hypoparathyroidism, asthma presents at the request of her physician for IV fluids. Patient states that she developed epigastric and bilateral flank pain today which she rates 9/10. Her physician noted elevated creatinine and asked her to make an effort to become dehydrated. She reports that she was unable to keep anything down. She had several episodes of vomiting this morning without blood she reports one episode of diarrhea yesterday. She was seen recently at a different facility for difficulty breathing, was diagnosed with "a lung infection" and placed on doxycycline and steroids. Nursing Notes Stated Complaint: REFERRED BY DR FOR FLUIDS,VOMITTING,HAVE CKD Chief Complaint: Female Abdominal Pain Nursing Notes Reviewed: Yes Allergies: Coded Allergies: Penicillins (Verified Allergy, Severe, rash/seizures/vomiting, 12/04/16) ciprofloxacin HCl (Verified Allergy, Severe, Hive from head to toe, fever , and painful skin, 12/04/16) methylphenidate HCl (Verified Allergy, Severe, itching/rash/vomitting, ) phenytoin sodium extended (Verified Allergy, Severe, rash/hives, 12/04/16) sumatriptan (Verified Allergy, Severe, causing migraines, 12/04/16) cephalexin (Verified Allergy, Intermediate, Nausea,Vomiting, 12/04/16) Sulfa (Sulfonamide Antibiotics) (Verified Allergy, Unknown, rash,seizure, 12/04/16) metoclopramide HCl (Verified Adverse Reaction, Unknown, pt says it doesn' t work, 12/04/16) Scheduled Ascorbic Acid (Vitamin C) 500 Mg Capsule.er 500 MG PO DAILY Budesonide/Formoterol 160-4.5 mcg Inh (Symbicort 160-4.5 mcg Inh) 120 Puff Inhaler 2 PUFF INHALATION BID Bumetanide (Bumetanide) 1 Mg Tablet 1 MG PO BID Calcitriol (Rocaltrol) 0.25 Mcg Capsule 0.5 MCG PO DAILY Cyanocobalamin (Cyanocobalamin Injection) 1,000 Mcg/1 Ml Vial 1 ML IM monthly administer on the 1st of the month Doxycycline Hyclate (Doxycycline Hyclate) 100 Mg Tablet 100 MG PO BID Gabapentin (Gabapentin) 300 Mg Capsule 300 MG PO HS Gabapentin (Gabapentin) 100 Mg Capsule 100 MG PO QAM Guaifenesin/Codeine Phosphate (Guaifenesin-Codeine Syrup) 5 Ml Liquid 5 ML PO Q6H Lamotrigine (Lamictal) 200 Mg Tablet 200 MG PO BID Levothyroxine (Levothyroxine) 75 Mcg Tablet 75 MCG PO DAILY Magnesium Oxide (Magnesium Oxide) 420 Mg Tablet 420 MG PO DAILY Metformin (Metformin) 500 Mg Tablet 1,500 MG PO DAILY Mirtazapine (Mirtazapine) 30 Mg Tablet 30 MG PO HS Omeprazole (Omeprazole) 20 Mg Capsule.dr 20 MG PO DAILY Ondansetron ODT (Ondansetron ODT) 8 Mg Tab.rapdis 4-8 MG PO QID Potassium Citrate ER (Potassium Citrate ER) 10 Meq Tablet 20 MEQ PO DAILY TAKE WITH FOOD Prednisone (PredniSONE) 20 Mg Tablet 40 MG PO DAILY take this pill tomorrow in the morning (09/18) Spironolactone (Spironolactone) 50 Mg Tablet 50 MG PO DAILY Scheduled PRN Albuterol HFA (Proair HFA) 8.5 Gm Hfa.aer.ad 2 PUFFS INHALATION Q4H PRN PRN For Shortness of Breath Albuterol Neb Soln (Albuterol Neb Soln) 2.5 Mg/3 Ml Vial.neb 3 ML INHALATION QID PRN PRN For Shortness of Breath Baclofen (Baclofen) 10 Mg Tablet 10 MG PO TID PRN PRN For Spasm Propylene Glycol (Systane Balance) 10 Ml Drops 1 DROP BOTH_EYES 5XD PRN PRN For Eye Irritation General Time Seen by MD: 18:03 Chief Complaint Abdominal pain Sudden in Onset?: No Past Medical History Past Medical History Notes: PCP: Dr. Lambert Past Medical History Anxiety Hypoparathyroid Migraines Fatty liver disease Nephrocalcinosis Diverticulosis DM Hiatal hernia Chronic pain PTSD DDD Hyperlipidemia IBS Gastroparesis Ovarian cysts - removed glaucoma cataracts Extra rib ADHD Obstructive Sleep Apnea Hypopituitarism Asthma Cancer COPD GERD Hypertension Chronic lymphedema Past Surgical History LEEP, hemorrhoid surgery Spinal stenosis Shoulder surgery Meniscus repair Lumpectomy Reports: Hysterectomy Reports: Back/neck surgery, Tubal ligation Family History Hyperlipidemia Reports: Diabetes mellitus Reports: Cancer Smoking History Former Smoker Social History Patient quit smoking 10 years ago but recently began again Alcohol Use: Denies alcohol use Drug Use: Denies drug use, THC Other Social History: Local resident Ambulatory Status Walker Review of Systems General: Denies fever, chills, malaise. HEENT: Denies congestion, headache, sore throat. Respiratory: With cough, denies dyspnea, shortness of breath, wheezing. Cardiovascular: Denies chest pain, palpitations. Gastrointestinal: Admits abdominal pain, vomiting, diarrhea Genitourinary: Denies frequency, urgency, dysuria, hematuria. Otherwise as noted in HPI. Physical Exam General: Well appearing, well developed, well nourished, no acute distress. Head: Atraumatic, normocephalic. Eyes: No scleral icterus or injection. No discharge. Vision grossly intact. ENT: Voice clear, hearing grossly intact. Respiratory: Clinically evident cough. Regular rate and rhythm. Breath sounds present, clear to auscultation and equal bilaterally. No respiratory distress. No increased work of breathing, speaks in complete sentences. Cardiovascular: Regular rate and rhythm, without murmur, gallop or rub. No pedal edema. Gastrointestinal: Obese abdomen diffusely moderately tender without guarding or rebound. Bowel sounds normoactive. Back: Normal to inspection, bilateral CVA tenderness to palpation. Skin: Warm and dry. Neurological: Grossly nonfocal. Psychological: Alert and oriented. Speech appropriate, linear and logical. Behavior appropriate. Vital Signs Vital Signs (First) Date Time Temp Pulse Resp B/P Pulse Ox O2 Delivery O2 Flow Rate FiO2 12/04/16 16:49 36.9 88 16 125/85 97 Room Air 12/04/16 20:12 2 Initial VS: Vital signs normal Interpretation & Diagnostics Lab Results Interpretation Result Diagram: 12/04/16 1715 12/04/16 1715 Test 12/04/16 17:15 12/04/16 17:29 White Blood Count 9.4th/mm3 (3.8-10.1) Red Blood Count 4.96mil/mm3 (3.90-5.20) Hemoglobin 14.4g/dL (12.0-15.6) Hematocrit 44.1% (35.0-46.0) Mean Corpuscular Volume 88.9fL (81-100) Mean Corpuscular Hemoglobin 29.0pg (27.0-35.0) Mean Corpuscular Hemoglobin Concent 32.7% (32.0-37.0) Red Cell Distribution Width 17.7% (12.3-15.4) Platelet Count 235bil/L (150-400) Neutrophils (%) (Auto) 75.2% (40-74) Lymphocytes (%) (Auto) 19.2% (14-46) Monocytes (%) (Auto) 3.9% (4-12) Eosinophils (%) (Auto) 0.6% (0-5) Basophils (%) (Auto) 0.3% (0-3) Sodium Level 141mEq/L (134-144) Potassium Level 4.0mEq/L (3.5-5.2) Chloride Level 101mEq/L (97-108) Carbon Dioxide Level 22mmol/L (18-29) Blood Urea Nitrogen 16mg/dL (6-24) Creatinine 1.65mg/dL (0.57-1.00) Estimat Glomerular Filtration Rate 46mL/min (>59) Glucose Level 116mg/dL (60-99) Calcium Level 10.1mg/dL (8.5-10.1) Magnesium Level 1.9mg/dL (1.6-2.6) Total Bilirubin 0.2mg/dL (0.0-1.2) Aspartate Amino Transf (AST/SGOT) 13U/L (0-50) Alanine Aminotransferase (ALT/SGPT) 12U/L (0-32) Alkaline Phosphatase 108U/L (25-150) Total Protein 7.0g/dL (6.4-8.4) Albumin 4.1g/dL (3.4-5.0) Lipase 26U/L (13-60) Hold Bowers Top Tube Received (Received) Urine Color Yellow (YELLOW) Urine Appearance Clear (CLEAR,HAZY) Urine pH 7.0 (5.0-8.0) Urine Specific [place] <1.005 (1.003-1.035) Urine Protein Negativemg/dL (NEG,TRACE) Urine Glucose (UA) Negativemg/dL (NEGATIVE) Urine Ketones Negativemg/dL (NEGATIVE) Urine Occult Blood Negative (NEGATIVE) Urine Nitrite Negative (NEGATIVE) Urine Bilirubin Negative (NEGATIVE) Urine Urobilinogen Normalmg/dL (NORMAL) Urine Leukocyte Esterase Trace (NEGATIVE) Urine RBC 0-2/hpf (0-2) Urine WBC 0-5/hpf (0-5) Urine Epithelial Cells Occasional/hpf (NONE-MOD) Urine Crystals None seen (NONE SEEN) Urine Bacteria None/hpf (NONE-FEW) Urine Hyaline Casts None/lpf (NONE) Urine Granular Casts None seen (NONE SEEN) Urine Waxy Casts None seen (NONE SEEN) Urine Red Blood Cell Casts None seen (NONE SEEN) Urine White Blood Cell Casts None seen (NONE SEEN) Urine Mucus None seen (None Seen) Urine Trichomonas None seen (NONE SEEN) Urine Yeast None (NONE SEEN) Urinalysis Comment None Urine Culture Reflexed Indicated Hold Urine Received (Received) CT Abd / Pelvis Interpretation PROCEDURE: CT KUB ([id number]) INDICATIONS: flank pain IMPRESSION: Source of bilateral flank pain is not found. No hydronephrosis or nephrolithiasis seen. Far distal right ureteral adjacent phlebolith, previously present. No inflammation seen. Interpretation / Wet Read by: Interpret - Radiologist Re-Eval/Medical Decision Med Decision/Clinical Course 56-year-old female with extensive medical history in this emergency department at the request for primary care physician who noted her elevated creatinine. This she began them to become more hydrated, but she reports vomiting. He suggested IV hydration. She also complains of generalized abdominal pain and bilateral CVA pain. Physical examination reveals global moderate abdominal tenderness and CVA tenderness bilaterally. Clinically evident cough, which the patient states she is being treated for. CMP reveals elevated creatinine of 1.65. CBC reveals no leukocytosis but a light slight left shift. Urinalysis reveals slight leukocyte esterase, but is unconvincing for urinary tract infection. CT KUB without contrast reveals no inflammation, hydronephrosis or nephrolithiasis. Patient responds well to milligrams morphine, ondansetron and 2 L of normal saline as well as 0.5 mg of Dilaudid. She is able to eat and drink in the department. Patient feels much improved and ready for discharge. At this point I am reassured that her pain is unlikely due to nephrolithiasis, pyelonephritis, appendicitis, cholecystitis, perforation, pancreatitis. I believe she is stable and safe to be discharged home. Patient states she has a pain management plan in place as well as a supply of ondansetron at home. Advise primary care follow-up for reassessment of creatinine level, provide emergent return precautions. Patient verbalizes understanding and consented to the plan. Discharge & Departure Primary Impression: Abdominal pain Abdominal location: generalized Qualified Code: R10.84 - Generalized abdominal pain Additional Impressions: Vomiting Vomiting type: unspecified Vomiting Intractability: non-intractable Nausea presence: with nausea Qualified Code: R11.2 - Nausea with vomiting, unspecified YVES (acute kidney injury) Disposition: Home Discharge Condition All VS Reviewed: Yes Condition: Stable Patient Instructions: Acute Abdominal Pain (ED) Additional Instructions: Evaluation in the emergency department for abdominal pain with vomiting. History, physical, lab tests and CT scan are reassuring that the ear pain and vomiting are unlikely to be caused by a dangerous condition. You responded well to pain medication, 2 L of fluid, ondansetron (Zofran) and were able to eat and drink before leaving the department. Though I cannot say for sure what is causing your abdominal pain I believe we have ruled out immediately dangerous causes. I believe you are stable and safe to be discharged to home. You tell me you have a good supply of ondansetron at home. You can take this up to 4 times a day for nausea. Pain is best managed 1000 mg of Tylenol taken every 6 hours. You can add 5-10 mg of your oxycodone to this for additional relief as needed every 4-6 hours Drink small amounts of fluid throughout the day. I typically recommend apple juice cut in half with water. Eat small amounts of food as tolerated. Follow-up with your primary care provider in the next couple of days to reassess your kidney function. Return to the emergency department for any new or worsening symptoms including increasing pain, fever, vomiting not controlled by medication Referrals: Mauricio Varma MD (PCP) EDSupervising Provider for APC: Juan Smith DO copies to: Mauricio Varma MD, Seth PA-C Dec 04, 2016 18:51
[2016-12-04 19:18] LABS: APPEARANCE,URINE CLEAR (CLEAR,HAZY); COLOR,URINE YELLOW (YELLOW); OCCULT BLOOD,URINE NEGATIVE (NEGATIVE); UROBILINOGEN,URINE NORMAL (NORMAL)
[2016-12-04] MEDS ORDERED: HYDROmorphone 0.5 mg/0.5 mL iSecure Syringe IVPUSH PRN (19:30)
--- NOTE | 2016-12-04 19:56 | DRSVH ---
PROCEDURE: CT KUB ([id number]) INDICATIONS: flank pain TECHNIQUE: Noncontrast 5 mm thick sections acquired from the diaphragms to the symphysis. 5 mm thick coronal an d sagittal reformats were then performed. For radiation dose reduction, the following was used: aut omated exposure control, adjustment of mA and/or kV according to patient size. COMPARISON: None. FINDINGS: Image quality: Excellent. Lung bases: Lung bases are clear. Heart size is normal. Urinary system: Both kidneys are normal in size. No kidney stones. No hydronephrosis or perinephri c fat stranding. Both ureters appear non-dilated throughout their expected courses. Bladder wall th ickness is normal; no calcified bladder stones. Other solid organs: Liver and spleen are normal in size, and the liver appears moderately fatty infi ltrated. Gallbladder appears normal. Pancreas is normal in contours. No adrenal nodules. Peritoneum and bowel: Unenhanced bowel loops demonstrate normal wall thickness and caliber. No free fluid or air. Nodes and vessels: No retroperitoneal or mesenteric adenopathy by size criteria. Aorta and inferior vena cava are normal in caliber. Abdominal wall: No ventral hernias. Pelvis: No free pelvic fluid. No inguinal hernias or adenopathy. Adjacent to the course of the far distal right ureter there is a phlebolith located lateral, which does not represent a distal right u reteral stone. Bones: No suspicious bony lesions. No vertebral body compression fractures. IMPRESSION: Source of bilateral flank pain is not found. No hydronephrosis or nephrolithiasis seen. Far distal right ureteral adjacent phlebolith, previously present. No inflammation seen. Dictated by: Jose Luis Kumari M.D. on 12/04/2016 at 19:51 Approved by: Jose Luis Kumari M.D. on 12/04/2016 at 19:53
== END 2016-12-04 22:01 | disposition home or self-care (01) ==
LOC: SED 16:36
DX: R10.84 Generalized abdominal pain (principal); R11.2 Nausea with vomiting, unspecified; N17.9 Acute kidney failure, unspecified; J45.909 Unspecified asthma, uncomplicated; J44.9 Chronic obstructive pulmonary disease, unspecified; E78.5 Hyperlipidemia, unspecified; I10 Essential (primary) hypertension; H40.9 Unspecified glaucoma; F90.9 Attention-deficit hyperactivity disorder, unspecified type; E11.43 Type 2 diabetes mellitus with diabetic autonomic (poly)neuropathy; Z79.84 Long term (current) use of oral hypoglycemic drugs; Z87.891 Personal history of nicotine dependence; Z88.0 Allergy status to penicillin; Z88.1 Allergy status to other antibiotic agents; Z88.2 Allergy status to sulfonamides; Z88.8 Allergy status to other drugs, medicaments and biological substances
CPT/HCPCS: 36415; 74176; 80053; 81000; 82948; 83690; 83735; 85025; 87086; 87088; 93005; 96361; 96374; 96375; 99285; J1170; J2270; J2405; J7030

== ENCOUNTER 2017-04-08 14:18 | Emergency (ER) | payer OTHER ==
[~2017-04-08] VITALS: Ht 162.6 cm; Wt 90.5 kg
[2017-04-08] VITALS (9 sets, daily range): BP systolic 103–136; BP diastolic 61–78; PULSE 70–79; RESP 12–16; O2SAT 93–99
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
[2017-04-08 17:05] LABS: BASOPHILS % (AUTO) 0.3 % (0-3); EOSINOPHILS % (AUTO) 2.2 % (0-5); MONOCYTES % (AUTO) 5.7 % (4-12); Mean Corpuscular Hemoglobin 28.5 pg (27.0-35.0); Mean Corpuscular Volume 89.3 fL (81-100); NEUTROPHILS % (AUTO) 66.4 % (40-74); Platelet Count 182 bil/L (150-400)
== END 2017-04-08 19:52 | disposition home or self-care (01) ==
LOC: SED 14:18
DX: S06.0X1A Concussion with loss of consciousness of 30 minutes or less, initial encounter (principal); S20.219A Contusion of unspecified front wall of thorax, initial encounter; S80.02XA Contusion of left knee, initial encounter; V48.0XXA Car driver injured in noncollision transport accident in nontraffic accident, initial encounter; Y93.9 Activity, unspecified; Y92.410 Unspecified street and highway as the place of occurrence of the external cause; Y99.8 Other external cause status; E11.43 Type 2 diabetes mellitus with diabetic autonomic (poly)neuropathy; I10 Essential (primary) hypertension; K21.9 Gastro-esophageal reflux disease without esophagitis; E78.5 Hyperlipidemia, unspecified; F43.10 Post-traumatic stress disorder, unspecified; Z87.891 Personal history of nicotine dependence; Z79.84 Long term (current) use of oral hypoglycemic drugs; Z88.0 Allergy status to penicillin; Z88.1 Allergy status to other antibiotic agents; Z88.2 Allergy status to sulfonamides; Z88.8 Allergy status to other drugs, medicaments and biological substances

== ENCOUNTER 2017-05-15 06:19 | Emergency (ER) | payer OTHER ==
[~2017-05-15] VITALS: Ht 162.6 cm; Wt 95.9 kg
[2017-05-15 06:34] VITALS: BP 148/74; PULSE 90; RESP 22; O2SAT 95
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
[2017-05-15] MEDS ORDERED: 0.9% Sodium Chloride 1,000 ML IV ONE (07:13)
[2017-05-15] MEDS ORDERED: Albuterol-Ipratropium 3 mL Inhalation Solution NEB ONE (07:15)
[2017-05-15] MEDS ORDERED: Azithromycin Inj 500 MG in Dextrose 5% w/Vial Mate 250 ML IV ONE (07:15)
[2017-05-15] MEDS ORDERED: Magnesium Sulf 2 Gm/50mL Water 2 GM in IV Premix 1 EACH IV ONE (07:15)
[2017-05-15] MEDS ORDERED: MethylprednisoLONE Sodium Succinate 62.5 mg/mL 2 mL Inj IVPUSH ONE (07:15)
[2017-05-15 08:18] LABS: BASOPHILS % (AUTO) 0.3 % (0-3); EOSINOPHILS % (AUTO) 3.3 % (0-5); NEUTROPHILS % (AUTO) 65.3 % (40-74); Platelet Count 176 bil/L (150-400)
--- NOTE | 2017-05-15 08:47 | DRSVH ---
PROCEDURE: X-RAY CHEST ONE VIEW, PORTABLE ([id number]) INDICATIONS: cough TECHNIQUE: One view of the chest was acquired. COMPARISON: [facility], CR, XR CHEST 1VW (PORTABLE), 04/08/2017, 14:36. FINDINGS: Surgical changes and devices: Postsurgical changes are redemonstrated in the lower cervical spine. Lungs and pleura: No definite pleural effusions or pneumothorax. The lung bases are partially obscu red by patient's overlying soft tissues. No definite focal consolidation. Mediastinum: Mediastinal contours appear unchanged. Heart size is at the upper limits of normal. Bones and chest wall: No suspicious bony lesions. Overlying soft tissues appear unremarkable. IMPRESSION: 1. Limited study demonstrates no definite acute cardiopulmonary disease. If clinical concern persis ts, recommend repeat PA and lateral study. Dictated by: Asa Omer M.D. on 05/15/2017 at 8:38 Approved by: Asa Omer M.D. on 05/15/2017 at 8:46
[2017-05-15 08:48] LABS: TROPONIN T 0.01 ug/L (0.0-0.011)
[2017-05-15] MEDS ORDERED: BECL8.7A6 INHALATION (11:25)
[2017-05-15 11:40] VITALS: BP 138/89; PULSE 82; RESP 18; O2SAT 94
== END 2017-05-15 11:42 | disposition home or self-care (01) ==
LOC: SED 06:19
DX: F43.20 Adjustment disorder, unspecified (principal); J45.901 Unspecified asthma with (acute) exacerbation; R11.10 Vomiting, unspecified; I10 Essential (primary) hypertension; F90.9 Attention-deficit hyperactivity disorder, unspecified type; F31.9 Bipolar disorder, unspecified; K21.9 Gastro-esophageal reflux disease without esophagitis; E11.43 Type 2 diabetes mellitus with diabetic autonomic (poly)neuropathy; G43.909 Migraine, unspecified, not intractable, without status migrainosus; H40.9 Unspecified glaucoma; E78.5 Hyperlipidemia, unspecified; F41.8 Other specified anxiety disorders; F17.200 Nicotine dependence, unspecified, uncomplicated; Z85.3 Personal history of malignant neoplasm of breast; Z91.5 Personal history of self-harm; Z90.89 Acquired absence of other organs; Z98.890 Other specified postprocedural states; Z90.710 Acquired absence of both cervix and uterus; Z79.84 Long term (current) use of oral hypoglycemic drugs; Z88.0 Allergy status to penicillin; Z88.1 Allergy status to other antibiotic agents; Z88.2 Allergy status to sulfonamides; Z88.8 Allergy status to other drugs, medicaments and biological substances
CPT/HCPCS: 36415; 71010; 80053; 82075; 83605; 83880; 84145; 84484; 85025; 87040; 93005; 96365; 96375; 99285; J0456; J2930; J7030